=== PATIENT | male | born 2000 | race Caucasian/White ===

== ENCOUNTER 2023-01-26 12:05 | Emergency (ER) | payer OTHER, SELFPAY ==
[2023-01-26] VITALS (9 sets, daily range): BP systolic 198–220; BP diastolic 100–140; PULSE 76–104; RESP 16–20; TEMP 36.8; O2SAT 93–99; BMI 34.1
--- NOTE | 2023-01-26 12:30 | XR_ITS ---
[facility] [place] [id number] Patient Name: EMERSON MARSH MRN: [id number] date: 2000 Sex: M Assigned Patient Location: ER Current Patient Location: ER Accession/Order Number: [id number] Exam Date: 01/26/2023 12:42 Report Date: 01/26/2023 13:00 At the request of: MARGOT CASSIDY Procedure: XR chest 2V EXAMINATION: XR chest 2V 01/26/2023 9:59 AM PDT, [id number]. HISTORY: htn TECHNIQUE: 2 views of the chest were acquired. COMPARISONS: Chest x-ray 12/19/2019 FINDINGS: Lines/tubes/other: None. Heart and mediastinum: Within normal limits. Bones: No acute osseous abnormality. Lungs: Clear. Pleura: No pleural effusion or pneumothorax. Other: No pneumoperitoneum. XR/XR chest 2V IMPRESSION: No significant cardiopulmonary abnormality. Electronically authenticated by: FLAVIO RAMON Date: 01/26/2023 13:00
--- NOTE | 2023-01-26 12:30 | ECG_ITS ---
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
--- NOTE | 2023-01-26 12:32 | ED_ITS ---
HPI - General Adult General Chief complaint: Recheck/Abnormal Lab/Rx Stated complaint: HIGH BLOOD PRESSURE Time Seen by Provider: 01/26/23 12:30 Source: patient and family Mode of arrival: walk-in Limitations: no limitations History of Present Illness HPI narrative: Patient is a 22-year-old male Who is presenting to the Emergency Room with asymptomatic of a blood pressures. Patient was seeing his eye doctor today, patient had elevated blood pressures, patient was sent to the Emergency Room for evaluation for asymptomatic hypertension. Patient's father has elevated blood pressure. Patient has taken blood pressure medication in the past as well, over 3 years ago. Patient does have medical insurance, he currently has no PCP. Patient stopped taking his blood pressure medication in the past. He currently has no headache, no vision or hearing changes. No chest pain or shortness of breath. Abdominal pain, nausea, vomiting, or any other acute complaints. Patient's sister is at bedside. No bowel pain, nausea, vomiting, or any other acute complaints. No recent traveling, no trauma. No significant chest or anxiety. Patient has a factory job. . All systems are negative except as noted/marked. All systems reviewed and otherwise negative. . Nurses note and vital signs reviewed and patient is not hypoxic. General: The patient appears well and in no apparent distress. Patient is resting comfortably on cart. Patient is not toxic, lethargic, or listless. Obese. Skin: Warm, dry, no pallor noted. There is no rash noted. No petechiae, purpura. Head: Normocephalic, atraumatic Eye: Normal conjunctiva, no drainage, EOMI. PERRL Ears, Nose, Mouth, and Throat: oral mucosa is moist. Nares patent. Mouth without vesicles. Cardiovascular: Regular Rate and Rhythm, no murmur, gallop, rub Respiratory: Patient is in no distress, no accessory muscle use, lungs are clear to auscultation, no wheezing, rales or rhonchi Back: non-tender, no CVA tenderness bilaterally to percussion. No CT LS midline pain GI: soft, obese, no tenderness to palpation, no masses appreciated. No rebound, guarding, or rigidity noted. No flank pain bilateral, No distention Musculoskeletal: Patient has full range of motion of all of the extremities, no motor, sensory, or focal neurological deficits Neurological: A&O x3, normal speech Psychiatric: Cooperative Related Data Previous Rx's Medication Instructions Recorded amlodipine 5 mg tablet (Norvasc) 5 mg PO DAILY #20 tabs 01/26/23 Allergies Allergy/AdvReac Type Severity Reaction Status Date / Time No Known Drug Allergies Allergy Verified 01/26/23 12:16 PFSH PFSH Social History Smoking status: Never smoker Exam Constitutional Vital Signs, click to edit/add: Last Vital Signs Temp 98.2 F 01/26/23 12:08 Pulse 96 H 01/26/23 14:15 Resp 16 01/26/23 14:15 BP 210/120 H 01/26/23 14:15 Pulse Ox 96 01/26/23 14:15 O2 Del Method Room Air 01/26/23 14:15 Course Vital Signs Vital signs: Vital Signs Temperature 98.2 F 01/26/23 12:08 Pulse Rate 100 H 01/26/23 12:08 Respiratory Rate 20 01/26/23 12:08 Blood Pressure 210/140 H 01/26/23 12:08 Pulse Oximetry 99 01/26/23 12:08 Oxygen Delivery Method Room Air 01/26/23 12:08 Temperature 98.2 F 01/26/23 12:08 Pulse Rate 96 H 01/26/23 14:15 Respiratory Rate 16 01/26/23 14:15 Blood Pressure 210/120 H 01/26/23 14:15 Pulse Oximetry 96 01/26/23 14:15 Oxygen Delivery Method Room Air 01/26/23 14:15 Medical Decision Making MDM Narrative Medical decision making narrative: Patient was given a dose of hydralazine 20 mg IV. Patient has a symptomatically hypertension. Patient has no signs of end organ damage. He has no symptoms in the Emergency Room. Patient was given a Norvasc 5 mg tablet at discharge. Patient was started on Norvasc 5 mg, patient understands importance of treating his elevated blood pressure, his family generalized, and is extremely risk for years of having elevated blood pressure and being medically noncompliant. Patient understands return back to Emergency Room severe headache, chest pain, shortness of breath, or any other acute complaints. Patient understands this, no questions at discharge. Patient's been asymptomatic the entire time in the Emergency Room. Patient understands he needs establish new PCP, patient has list of doctors phone numbers and names of who is accepting patients at this time. Patient will be falling up with the [facility] with Gricelda Tucker or Dr Salas. Lab Data Lab results reviewed: Yes I reviewed the patient's lab results Labs: Lab Results 01/26/23 Range/Units 12:30 WBC 7.7 (4.0-11.0) 10^3/uL RBC 4.78 (4.70-6.10) 10^6/uL Hgb 13.5 L (14.0-18.0) g/dL Hct 40.5 L (42.0-54.0) % MCV 84.7 (80.0-94.0) fL MCH 28.2 (25.9-34.0) pg MCHC 33.3 (29.9-35.2) g/dL RDW 13.1 (11.0-15.0) % Plt Count 319 (150-450) 10^3/uL MPV 10.2 (9.5-13.5) fL Neut % (Auto) 58.7 (43.0-75.0) % Lymph % (Auto) 29.4 (20.5-60.0) % [place] % (Auto) 8.1 (1.7-12.0) % Eos % (Auto) 2.7 (0.9-7.0) % Baso % (Auto) 0.7 (0.2-2.0) % Neut # (Auto) 4.5 (1.4-6.5) 10^3/uL Lymph # (Auto) 2.3 (1.2-3.8) 10^3/uL [place] # (Auto) 0.6 (0.3-0.8) 10^3/uL Eos # (Auto) 0.2 (0.0-0.7) 10^3/uL Baso # (Auto) 0.1 (0.0-0.1) 10^3/uL Abs Immat Gran (auto) 0.03 (0.00-0.03) 10^3/uL Imm/Tot Granulo (auto) 0.4 (0.0-0.5) % Sodium 141 (136-145) mmol/L Potassium 3.5 (3.5-5.1) mmol/L Chloride 104 (98-107) mmol/L Carbon Dioxide 26.8 (21.0-32.0) mmol/L Anion Gap 13.7 BUN 18.0 (7.0-18.0) mg/dL Creatinine 0.93 (0.70-1.30) mg/dL Est GFR ( Amer) >60 (>=60) Est GFR (Non-Af Amer) >60 (>=60) BUN/Creatinine Ratio 19.4 Glucose 97 (74-106) mg/dL Calcium 8.9 (8.5-10.1) mg/dL Total Bilirubin 0.2 (0.2-1.0) mg/dL AST 23 (15-37) U/L ALT 60 (16-63) U/L Alkaline Phosphatase 61 (46-116) U/L Troponin I High Sens 8.7 (4.0-76.1) pg/mL Total Protein 8.3 H (6.4-8.2) g/dL Albumin 4.2 (3.4-5.0) g/dL Globulin 4.1 g/dL Albumin/Globulin Ratio 1.0 ECG Data Attestation: I personally reviewed and interpreted this ECG as follows: Interpretation: EKG interpretation. Normal sinus rhythm at 83 beats a minute. Normal axis deviation. No acute ST elevation, no acute ectopy. QTC of 407. Q waves noted in the inferior leads. Discharge Plan Discharge Chief Complaint: Recheck/Abnormal Lab/Rx Clinical Impression: Medical non-compliance, Hypertension Patient Disposition: Home, Self-Care Condition: Fair Prescriptions / Home Meds: New amlodipine [Norvasc] 5 mg tablet 5 mg PO DAILY Qty: 20 0RF Instructions: Hypertension (ED) Additional Instructions: Follow-up with a new physician that you are scheduling a new patient appointment with. You have been given a 2 week prescription of blood pressure medication To help. Start recording your blood pressures twice a day, start recording/creating your blood pressure log as discussed. If you have any other significant symptoms, Significant headache, chest pain, shortness of breath, or any other acute complaints, please return to the Emergency Room for reevaluation. Stand Alone Forms: Portal Instructions Referrals: Isael Andres MD [Physician] - 1 week Physician,Non-, [Primary Care Provider] - 1 week Shaikh Salas MD [Physician] - 1 week
[2023-01-26] MEDS: HYDRALAZINE HCL 20 MG/ML VIAL IVP (12:54)
[2023-01-26] MEDS: ONDANSETRON PF 4 MG/2 ML VIAL IV (12:54)
[2023-01-26 12:55] LABS: Basophils Absolute Auto 0.1 10^3/uL (0.0-0.1); Basophils Percent Auto 0.7 % (0.2-2.0); Eosinophils Absolute Auto 0.2 10^3/uL (0.0-0.7); Eosinophils Percent Auto 2.7 % (0.9-7.0); Hematocrit 40.5 % (42.0-54.0); Hemoglobin 13.5 g/dL (14.0-18.0); Immature Granulocytes Abs Auto 0.03 10^3/uL (0.00-0.03); Immature Granulocytes Pct Auto 0.4 % (0.0-0.5); Lymphocytes Absolute Auto 2.3 10^3/uL (1.2-3.8); Lymphocytes Percent Auto 29.4 % (20.5-60.0); Mean Corpuscular HGB Conc 33.3 g/dL (29.9-35.2); Mean Corpuscular Hemoglobin 28.2 pg (25.9-34.0); Mean Corpuscular Volume 84.7 fL (80.0-94.0); Mean Platelet Volume 10.2 fL (9.5-13.5); Monocytes Absolute Auto 0.6 10^3/uL (0.3-0.8); Monocytes Percent Auto 8.1 % (1.7-12.0); Neutrophils Absolute Auto 4.5 10^3/uL (1.4-6.5); Neutrophils Percent Auto 58.7 % (43.0-75.0); Platelet Count 319 10^3/uL (150-450); Red Blood Count 4.78 10^6/uL (4.70-6.10); Red Cell Distribution Width 13.1 % (11.0-15.0); White Blood Count 7.7 10^3/uL (4.0-11.0)
[2023-01-26 13:09] LABS: Alanine Aminotransferase 60 U/L (16-63); Albumin Level 4.2 g/dL (3.4-5.0); Alkaline Phosphatase 61 U/L (46-116); Anion Gap 13.7; Aspartate Amino Transferase 23 U/L (15-37); BUN Creatinine Ratio 19.4; Bilirubin Total 0.2 mg/dL (0.2-1.0); Calcium 8.9 mg/dL (8.5-10.1); Carbon Dioxide 26.8 mmol/L (21.0-32.0); Chloride 104 mmol/L (98-107); Estimated GFR (African America >60 (>=60); Estimated GFR (Non-African Ame >60 (>=60); Globulin 4.1 g/dL; Glucose 97 mg/dL (74-106); Potassium 3.5 mmol/L (3.5-5.1); Sodium 141 mmol/L (136-145); Total Protein 8.3 g/dL (6.4-8.2); Troponin I High Sensitivity 8.7 pg/mL (4.0-76.1)
[2023-01-26] MEDS: AMLODIPINE BESYLATE 5 MG TABLET PO (15:23)
== END 2023-01-26 15:35 | disposition home or self-care (01) ==
PROVIDERS: Emergency Provider Emergency Medicine
DX: I10 Essential (primary) hypertension (principal); Z91.148 Patient's other noncompliance with medication regimen for other reason
CPT/HCPCS: 36415; 71046; 80053; 84484; 85025; 93005; 96374; 96375; 99285

== ENCOUNTER 2024-04-17 07:36 | Outpatient (OUT) | payer OTHER, SELFPAY ==
[2024-04-17 08:03] LABS: Basophils Absolute Auto 0.1 10^3/uL (0.0-0.1); Eosinophils Absolute Auto 0.3 10^3/uL (0.0-0.7); Eosinophils Percent Auto 3.7 % (0.9-7.0); Hematocrit 42.7 % (42.0-54.0); Hemoglobin 14.5 g/dL (14.0-18.0); Immature Granulocytes Abs Auto 0.02 10^3/uL (0.00-0.03); Immature Granulocytes Pct Auto 0.3 % (0.0-0.5); Lymphocytes Absolute Auto 2.5 10^3/uL (1.2-3.8); Lymphocytes Percent Auto 31.2 % (20.5-60.0); Mean Corpuscular Hemoglobin 28.8 pg (25.9-34.0); Mean Corpuscular Volume 84.9 fL (80.0-94.0); Monocytes Absolute Auto 0.5 10^3/uL (0.3-0.8); Monocytes Percent Auto 6.1 % (1.7-12.0); Neutrophils Absolute Auto 4.6 10^3/uL (1.4-6.5); Neutrophils Percent Auto 57.7 % (43.0-75.0); Platelet Count 328 10^3/uL (150-450); Red Blood Count 5.03 10^6/uL (4.70-6.10); Red Cell Distribution Width 12.9 % (11.0-15.0); White Blood Count 7.9 10^3/uL (4.0-11.0)
[2024-04-17 08:41] LABS: Bilirubin Urine NEGATIVE (NEGATIVE); Blood Urine NEGATIVE (NEGATIVE); Clarity Urine CLEAR (CLEAR); Color Urine LT. YELLOW (YELLOW); Glucose Urine UA NEGATIVE (NEGATIVE); Ketones Urine NEGATIVE (NEGATIVE); Leukocyte Esterase Urine NEGATIVE (NEGATIVE); Nitrite Urine NEGATIVE (NEGATIVE); Protein Urine NEGATIVE (NEG/TRACE); Specific Gravity Urine >=1.030 (1.005-1.025); Urobilinogen Urine 0.2 EU/dL (0.2-1.0); pH Urine 5.5 (5.0-9.0)
[2024-04-17 08:44] LABS: Urine Microscopic Indicated NO
[2024-04-17 08:51] LABS: Alanine Aminotransferase 58 U/L (16-63); Albumin Globulin Ratio 0.9; Alkaline Phosphatase 71 U/L (46-116); Anion Gap 17.8; Aspartate Amino Transferase 27 U/L (15-37); BUN Creatinine Ratio 20.2; Bilirubin Total 0.3 mg/dL (0.2-1.0); Calcium 9.6 mg/dL (8.5-10.1); Carbon Dioxide 22.2 mmol/L (21.0-32.0); Chloride 103 mmol/L (98-107); Chol HDL Ratio 4.2; Cholesterol 213 mg/dL (<=200); Estimated GFR (African America >60 (>=60 mL/min/1.73m^2); Estimated GFR (Non-African Ame >60 (>=60 mL/min/1.73m^2); Globulin 4.6 g/dL; Glucose 79 mg/dL (74-106); HDL Cholesterol 51 mg/dL (40-60); Sodium 139 mmol/L (136-145); Thyroid Stimulating Hormone 1.417 uIU/mL (0.358-3.740); Total Protein 8.6 g/dL (6.4-8.2); Triglycerides 183 mg/dL (<=150); VLDL CHOLESTEROL 36.6 mg/dL
[2024-04-17 09:02] LABS: Creatinine Urine Random 240.51 mg/dL (20.00-300.00); Microalbum Creatinine Ratio Ur 5.8 mg/g (0.0-29.9); Microalbumin Urine Random 1.4 mg/dL (<=30.0)
== END 2024-04-17 07:37 | disposition home or self-care (01) ==
LOC: LAB 07:37
PROVIDERS: PCP Nurse Practitioner; Visit Provider Nurse Practitioner
DX: I47.10 Supraventricular tachycardia, unspecified (principal); I10 Essential (primary) hypertension; Z68.42 Body mass index [BMI] 45.0-49.9, adult
CPT/HCPCS: 36415; 80053; 80061; 81003; 82043; 82570; 84443; 85025

== ENCOUNTER 2024-05-29 06:54 | Outpatient (OUT) | payer OTHER, SELFPAY | END 2024-05-29 06:55 | disposition home or self-care (01) | LOC: SLEEP 06:54 | PROVIDERS: PCP Nurse Practitioner; Visit Provider Nurse Practitioner | DX: G47.33 Obstructive sleep apnea (adult) (pediatric) (principal) | CPT/HCPCS: 95810 ==

== ENCOUNTER 2024-06-04 15:48 | Outpatient (OUT) | payer OTHER, SELFPAY | END 2024-06-04 15:49 | disposition home or self-care (01) | LOC: SLEEP 15:48 | PROVIDERS: PCP Nurse Practitioner; Visit Provider Nurse Practitioner | DX: G47.33 Obstructive sleep apnea (adult) (pediatric) (principal) | CPT/HCPCS: 95811 ==

== ENCOUNTER 2025-01-30 06:56 | Outpatient (OUT) | payer OTHER, SELFPAY ==
--- OUTSIDE RECORDS SUMMARY | 2023-04-25 08:26 | XMS_ITS | Continuity of Care Document ---
Author Organization [facility] Address [address] [place] [address] Phone Care Team Providers Care Optics Engineer Name Role Phone Simi Ware MD Unavailable Unavailable Allergies, Adverse Reactions, Alerts Substance Reaction Status Criticality No Known Allergies Active No Inform ation Medications Medication Instructions Dosage Effective Dates (start - stop) Status Comments Norvasc 10 mg tablet take 1 tablet by or al route every day 10 MG - Active Procedures Procedure Date Ophthal DX Image Post Retina I And R Uni Or Bi OFFICE/OUTPATIENT VISIT, [facility] Fundus Photos No Charge Bilateral Ophthal DX Image Post Retina I And R Uni Or Bi OFFICE/OUTPATIENT VISIT, [facility] Advance Directives Directive Yes / No Effective Date File Name No Information Encounters Encounter Description Practice Location Reason(s) For Visit Diagnoses Date Provider Providers Copied on Encounter [facility] , [address] [place], [place], [facility], tel:[phone] KESHIA Bruno No Information 3 Jeanie Belcher. [address], [address], [place], [place], [id number] , [place]. tel:[phone] OFFICE/OUTPAT IENT VISIT, [facility], [facility] , [address] [place], [address], tel:[phone] MIN [place] Hypertensive retinopathy (chief complaint) Hypertensive retinopathy of both eyesPapilledem a, both eyesRetinal hemorrhage, bilateral 3 Jeanie Belcher. [address], [address], [place], [place], [id number] , [place]. tel:[phone] Other Provider: Gricelda Pettit, [address] [place], [address]. tel:[phone] erring Provider: Simi Hicks, [address] [facility], [place], [address] . tel:[phone] OFFICE/OUTPAT IENT VISIT, [facility] , [address], [address], [place] tel:[phone] MIN [place] blind spots (chief complaint) Hypertensive retinopathy of both eyesPapilledem a, both eyesRetinal hemorrhage, bilateral 3 Jeanie Hansaboubacar. [address], [place] [address], [place], [place], [id number] , [place]. tel:[phone] Referring Provider: Simi Hicks, [address] [facility], [place], [address] . tel:[phone] [facility] , [address] [place], [address], [place] tel:[phone] [facility] [place] No Information 3 Jeanie Hansaboubacar. [address] [facility], [place], [place], [id number] , [place]. tel:[phone] Family History Family Member Type Diagnosis Age At Onset Paternal grandfather Problem Diabetes mellitus Mother Problem Diabetes mellitus Father Problem Diabetes mellitus Payers Payer name Insurance type Covered alliance party ID Authoriza tion(s) [employer] Benefits [facility] [id number] CI [id number] Social History Type Description Quantity Date Captured Comments Sex Male Smoking Status No Information Chief Complaint And Reason For Visit No Information Reason For Referral Reason For Referral No Information History Of Present Illness Encounter Date Complaint History Of Prese nt Illness Hypertensive retinopathy The 22 year old male presents for 1 month evaluation of Hypertensive retinopathy in the right and left eyes. Patient is currently taking Norvasc for his HTN. Patient belies his vision has gotten worse. He states the spots are always in his vision. Patient believes that there are more spots then before and he does see them when he is at work, due to brightness of where he works. blind spots The 22 year old male presents for evaluation of blind spots in the right and left eyes. Patient states he started to notice blind spots in his central vision December 28, 2022. This originally started in the left eye and has progressed to the left eye several weeks ago. Patient denies flashes of light, but does report some pain OU. Patient reports blurry vision but does not wear glasses. 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
--- OUTSIDE RECORDS SUMMARY | 2025-01-30 07:02 | XMS_ITS | CCD ---
Author Organization [facility] Care Team Providers Care Software Applications Specialist Name Role Phone MARKER, GENESIS Admitting Unavailable MARKER, GENESIS Attending Unavailable REQUEST, NONE LISTED Primary Care Unavailable MARKER, GENESIS Consulting Unavailable Escobar, Vinaya Consulting Unavailable Jose FROST, Reji Martinez Unavailable Wilver CONCRETE CRAFTSMAN, Gricelda Unavailable Reji Garcia MD Unavailable Wilver CONCRETE CRAFTSMAN, Gricelda Unavailable Isael Andres MD Primary Care Provider Wilver CONCRETE CRAFTSMAN, Gricelda Unavailable WILVER GRICELDA Attending Unavailable WILVER, GRICELDA Attending Unavailable GRICELDA PETTIT Attending Unavailable GRICELDA PETTIT Attending Unavailable Reji Garcia DO Unavailable Allergies Allergy Classification Reported Allergen(s) Allergy Type Date of Onset Reaction(s) Facility (13 sources) Honey bee venom Propensity to adverse reactions 4 Swelling [facility] Medications Completed/Discontinued Medications Medication Drug Class(es) Dates Sig (Normalized) Sig (Original) amLODIPine 10 mg oral tablet (20 sources) Dihydropyridine Calcium Channel Abdoul Start: 02-02-2024 End: 02-18-2025 take 1 tablet by mouth once daily amLODIPine (Norvasc) 10 MG tablet Indications: Primary hypertension (CMS/HCC) Take 1 tablet (10 mg) by mouth Daily 90 tablet 1 07/03/2024 11/20/2024 Discontinued (Reorder) Start: 04-06-2023 End: 10-19-2023 take 1 tablet by mouth in the morning amLODIPine (Norvasc) 10 MG tablet Indications: Primary hypertension (CMS/HCC) Take 1 tablet (10 mg) by mouth in the morning. Take 1 tablet by mouth in the morning.. 90 tablet 0 07/21/2023 10/19/2023 Active losartan potassium 100 mg oral tablet (20 sources) Angiotensin 2 Receptor Abdoul Start: 02-02-2024 End: 02-18-2025 take 1 tablet by mouth once daily in the morning losartan (Cozaar) 100 MG tablet Indications: Primary hypertension (CMS/HCC) Take 1 tablet (100 mg) by mouth Daily Take 1 tablet by mouth in the morning. 90 tablet 1 07/03/2024 11/20/2024 Discontinued (Reorder) Start: 06-05-2023 End: 10-19-2023 take 1 tablet by mouth in the morning losartan (Cozaar) 100 MG tablet Indications: Primary hypertension (CMS/HCC) Take 1 tablet (100 mg) by mouth in the morning. 30 tablet 1 07/07/2023 07/21/2023 Discontinued Problems Active Problems Problem Classification Problem Date Documented Date Episodic/Chronic Cardiac dysrhythmias (14 sources) Supraventricular tachycardia; Translations: [SVT (supraventricular tachycardia)] Onset: 07-21-2023 07-21-2023 Chronic Cardiac dysrhythmias (4 sources) Tachycardia, unspecified; Translations: [Palpitations] Onset: 12-19-2019 Episodic Disorders of lipid metabolism (11 sources) Mixed hyperlipidemia; Translations: [Mixed hyperlipidemia] Onset: 05-03-2024 05-03-2024 Chronic Essential hypertension (20 sources) Essential (primary) hypertension; Translations: [Hypertensive disorder] Onset: 12-21-2019 07-06-2023 Chronic Fever of unknown origin (1 source) Fever, unspecified; Translations: [FEVER UNSPECIFIED] Onset: 12-21-2019 Episodic Mood disorders (14 sources) Major depressive disorder; Translations: [Major depressive disorder, single episode, unspecified] Onset: 07-21-2023 07-21-2023 Chronic Other nutritional; endocrine; and metabolic disorders (1 source) Morbid (severe) obesity due to excess calories; Translations: [MORBID SEVERE OBES D/T EXCESS CEM] Onset: 12-21-2019 Chronic Other nutritional; endocrine; and metabolic disorders (1 source) Body mass index (BMI) 31.0-31.9, adult; Translations: [BODY MASS INDEX BMI 31.0-31.9 ADULT] Onset: 12-21-2019 Chronic Other nutritional; endocrine; and metabolic disorders (20 sources) Body mass index 40+ - severely obese; Translations: [Morbid (severe) obesity due to excess calories] Onset: 07-21-2023 07-21-2023 Chronic Other nutritional; endocrine; and metabolic disorders (10 sources) Obesity caused by energy imbalance; Translations: [Morbid (severe) obesity due to excess calories] Onset: 07-03-2024 07-03-2024 Chronic Residual codes; unclassified (20 sources) Obstructive sleep apnea of adult; Translations: [Obstructive sleep apnea (adult) (pediatric)] Onset: 07-21-2023 07-21-2023 Chronic Retinal detachments; defects; vascular occlusion; and retinopathy (16 sources) Hypertensive retinopathy; Translations: [Hypertensive retinopathy, bilateral] Onset: 07-21-2023 07-21-2023 Chronic Past or Other Problems Problem Classification Problem Date Documented Da te Episodic/Chronic Other hematologic conditions (15 sources) Increased serum protein level; Translations: [Abnormality of plasma protein, unspecified] Onset: 04-18-2024 04-18-2024 Episodic Results Test Name Value Interpretation Reference Range Facility ALL CBC WITH AUTO DIFFon BASOPHILS ABSOLUTE AUTO 0.1 [facility] Basophils/100 WBC (Bld) 1 % 0.2 - 2.0 % [facility] Eosinophils/100 WBC (Bld) 3.7 % 0.9 - 7.0 % [facility] Erythrocyte distribution width (RBC) [Ratio] 12.9 % 11.0 - 15.0 % [facility] Hematocrit (Bld) [Volume fraction] 42.7 % 42.0 - 54.0 % [facility] Hemoglobin (Bld) [Mass/Vol] 14.5 g/dL 14.0 - 18.0 g/dL [facility] IMMATURE GRANULOCYTES ABS AUTO 0.02 [facility] Immature granulocytes/100 WBC (Bld) 0.3 % 0.0 - 0.5 % [facility] LYMPHOCYTES ABSOLUTE AUTO 2.5 [facility] Lymphocytes/100 WBC (Bld) 31.2 % 20.5 - 60.0 % [facility] MCH (RBC) [Entitic mass] 28.8 pg 25.9 - 34.0 pg [facility] MCHC (RBC) [Mass/Vol] 34 g/dL 29.9 - 35.2 g/dL [facility] MCV (RBC) [Entitic vol] 84.9 fL 80.0 - 94.0 fL [facility] MONOCYTES ABSOLUTE AUTO 0.5 [facility] Monocytes/100 WBC (Bld) 6.1 % 1.7 - 12.0 % [facility] NEUTROPHILS ABSOLUTE AUTO 4.6 [facility] Neutrophils/100 WBC (Bld) 57.7 % 43.0 - 75.0 % [facility] Platelet mean volume (Bld) [Entitic vol] 10 fL 9.5 - 13.5 fL [facility] EO # 0.3 [facility] PLT 328 [facility] RBC 5.03 [facility] WBC 7.9 [facility] CARDIAC EDER ADMITon 020 CK [Catalytic activity/Vol] 120 U/L Normal 55-170 [facility] [place] Comment on above: Performed By: #### C MARY ELLEN REYES #### [facility] [place] Laboratory [address] [place] [address] Aiden Nieves CK.MB [Mass/Vol] 0.76 ng/mL Normal <=2.37 [facility] Comment on above: Performed By: #### C MARY ELLEN REYES #### [facility] [place] Laboratory [address] [place] [address] Aidenaudrey Carvalhoen INR Coag (Bld) [Relative time] SEE BELOW Normal [facility] [place] Comment on above: Result Comment: <0.0 34 ng/ml NEGATIVE 0.034-0.119 INDETERMINATE 0.120 AMI CUT OFF Performed By: #### C MARY ELLEN REYES #### [facility] [place] Laboratory [address] [place] [address] Aiden Lizbeth PENNY 40.0 ng/mL Normal <=121.0 [facility] [place] Comment on above: Performed By: #### C MARY ELLEN REYES #### [facility] [place] Laboratory [address] [place] [address] Aiden Lizbeth TROP <0.012 Normal <=0.034 [facility] [place] Comment on above: Performed By: #### C MARY ELLEN REYES #### [facility] [place] Laboratory [address] [place] [address] Aiden Lizbeth CBC AUTO DIFFon 12-19-2019 Basophils (Bld) [#/Vol] 0.1 103/ul Normal 0.0-0.1 [facility] [place] Comment on above: Performed By: #### C BC #### [facility] Laboratory [address] [id number] Aiden Lizbeth Basophils/100 WBC (Bld) 0.8 % Normal 0.2-2.0 [facility] [place] Comment on above: Performed By: #### C BC #### [facility] Laboratory [address] [address] Aiden Lizbeth Eosinophils (Bld) [#/Vol] 0.2 103/ul Normal 0.0-0.7 [facility] Comment on above: Performed By: #### C BC #### [facility] [place] Laboratory [address] [place] [address] Aiden Lizbeth Eosinophils/100 WBC (Bld) 3.3 % Normal 0.9-7.0 [facility] Comment on above: Performed By: #### C BC #### [facility] Laboratory [address] [place] [address] Aiden Lizbeth Erythrocyte distribution width (RBC) [Ratio] 12.7 % Normal 11.0-15.0 [facility] Comment on above: Performed By: #### C BC #### [facility] Laboratory [address] [place], [place] [id number] Aiden Lizbeth Hematocrit (Bld) [Volume fraction] 41.6 % Critically low 42.0-54.0 [facility] [place] Comment on above: Performed By: #### C BC #### [facility] Laboratory [address] [place], [place] [id number] Aiden Lizbeth Hemoglobin (Bld) [Mass/Vol] 13.8 g/dL Critically low 14.0-18.0 [facility] [place] Comment on above: Performed By: #### C BC #### [facility] Laboratory [address] [place] [address] Aiden Lizbeth IG # 0.01 10e3/ul Normal 0.00-0.03 [facility] [place] Comment on above: Performed By: #### C BC #### [facility] [place] Laboratory [address] [id number] Aiden Lizbeth IG % 0.1 % Normal 0.0-0.5 [facility] [place] Comment on above: Performed By: #### C BC #### [facility] Laboratory [address] [id number] Aiden Lizbeth Lymphocytes (Bld) [#/Vol] 2.3 103/ul Normal 1.2-3.8 [facility] [place] Comment on above: Performed By: #### C BC #### [facility] [place] Laboratory [address] [place], [place] [id number] Aiden Lizbeth Lymphocytes/100 WBC (Bld) 32.4 % Normal 20.5-60.0 [facility] [place] Comment on above: Performed By: #### C BC #### [facility] [place] Laboratory [address] [place], [place] [id number] Aiden Lizbeth MANUAL DIFF REQ NO Normal [facility] Comment on above: Performed By: #### C BC #### [facility] [place] Laboratory [address] [place], [place] [id number] Aiden Lizbeth MCH (RBC) [Entitic mass] 28.7 pg Normal 25.9-34.0 [facility] [place] Comment on above: Performed By: #### C BC #### [facility] [place] Laboratory [address] [place], [place] [id number] Aiden Lizbeth MCHC (RBC) [Mass/Vol] 33.2 g/dL Normal 29.9-35.2 [facility] [place] Comment on above: Performed By: #### C BC #### [facility] Laboratory [address] [place], [place] [id number] Aiden Lizbeth MCV (RBC) [Entitic vol] 86.5 fL Normal 80.0-94.0 [facility] [place] Comment on above: Performed By: #### C BC #### [facility] Laboratory [address] [place], [place] [address] Aiden Lizbeth Monocytes (Bld) [#/Vol] 0.5 103/ul Normal 0.3-0.8 [facility] Comment on above: Performed By: #### C BC #### [facility] Laboratory [address] [place], [place] [address] Aiden Lizbeth Monocytes/100 WBC (Bld) 6.6 % Normal 1.7-12.0 [facility] Comment on above: Performed By: #### C BC #### [facility] Laboratory [address] [place], [place] [address] Aiden Lizbeth Neutrophils (Bld) [#/Vol] 4.1 103/ul Normal 1.4-6.5 [facility] Comment on above: Performed By: #### C BC #### [facility] Laboratory [address] [place], [place] [address] Aiden Lizbeth Neutrophils/100 WBC (Bld) 56.8 % Normal 43.0-75.0 [facility] Comment on above: Performed By: #### C BC #### [facility] Laboratory [address] [place], [place] [address] Aiden Lizbeth Platelet mean volume (Bld) [Entitic vol] 10.5 fL Normal 9.5-13.5 [facility] Comment on above: Performed By: #### C BC #### [facility] Laboratory [address] [place], [place] [address] Aiden Lizbeth Platelets (Bld) [#/Vol] 308 103/ul Normal 150-450 [facility] [place] Comment on above: Performed By: #### C BC #### [facility] Laboratory [address] [place], [place] [address] Aiden Lizbeth RBC (Bld) [#/Vol] 4.81 106/ul Normal 4.70-6.10 [facility] Comment on above: Performed By: #### C BC #### [facility] Laboratory [address] [place], [place] [address] Aiden Lizbeth WBC (Bld) [#/Vol] 7.2 103/ul Normal 4.0-11.0 [facility] Comment on above: Performed By: #### C BC #### [facility] Laboratory [address] [place], [place] [address] Aiden Lizbeth D-DIMERon 12-19-2019 D-DIMER COMMENTS SEE BELOW Normal [facility] Comment on above: Result Comment: Incr eases in D-Dimer concentration observed with thromboembolic events can be variable due to localization, size, and age of the thrombus. Therefore, a thromboembolic event cannot be diagnosed with certainty on the basis of the reference range. D-Dimers may also be elevated for a variety of disorders including: advanced age, , coronary disease, cancer, liver disease, infection, inflammation, hematoma, DIC, trauma, post-surgery, diabetes, thrombolytic or anticoagulant therapy, stress, and generalizd hospitalization. Performed By: #### D DIM #### [facility] Laboratory [address] [place], [place] [address] Aiden Nieves Fibrin D-dimer FEU IA (Bld) [Mass/Vol] 0.19 ug/mL Normal 0.19-0.50 [facility] Comment on above: Performed By: #### D DIM #### [facility] Laboratory [address] [place] [address] Aiden Nieves PROF 14(COMP METB)on 020 Albumin [Mass/Vol] 4.0 g/dL Normal 3.5-5.0 [facility] Comment on above: Performed By: #### C MARY ELLEN REYES #### [facility] Laboratory [address] [place], [place] [address] Aiden Nieves Albumin/Globulin [Mass ratio] 1.0 {ratio} Normal [facility] Comment on above: Performed By: #### C MARY ELLEN REYES #### [facility] Laboratory [address] [place], [place] [address] Aiden Nieves ALP [Catalytic activity/Vol] 56 U/L Normal 38-126 [facility] Comment on above: Performed By: #### C VÍCTOR REYESDM #### [facility] Laboratory [address] [place], [place] [address] Aiden Nieves ALT [Catalytic activity/Vol] 61 U/L Normal 21-72 [facility] Comment on above: Performed By: #### C VÍCTOR REYESDM #### [facility] Laboratory [address] [place], [place] [address] Aiden Nieves Anion gap [Moles/Vol] 16.3 mmol/L Normal [facility] Comment on above: Performed By: #### C MARY ELLEN REYES #### [facility] Laboratory [address] [id number] Aiden Lizbeth AST [Catalytic activity/Vol] 36 U/L Normal 17-59 [facility] Comment on above: Performed By: #### C AMY, VÍCTORDM #### [facility] Laboratory [address] [id number] Aiden Lizbeth Bilirubin Ql (U) 0.4 mg/dL Normal 0.2-1.3 [facility] Comment on above: Performed By: #### C AMY, VÍCTORDM #### [facility] Laboratory [address] [id number] Aiden Lizbeth Calcium [Mass/Vol] 9.0 mg/dL Normal 8.4-10.2 [facility] Comment on above: Performed By: #### C AMY, CMADM #### [facility] [address] [id number] Aiden Lizbeth Chloride [Moles/Vol] 102 mmol/L Normal 98-107 [facility] Comment on above: Performed By: #### C MARY ELLEN REYES #### [facility] Laboratory [address] [id number] Aiden Lizbeth CO2 [Moles/Vol] 25.3 mmol/L Normal 22.0-30.0 [facility] Comment on above: Performed By: #### C AMY, CMADM #### [facility] Laboratory [address] [id number] Aiden Lizbeth Creatinine [Mass/Vol] 1.01 mg/dL Normal 0.66-1.25 [facility] Comment on above: Performed By: #### C AMY, CMADM #### [facility] Laboratory [address] [phone] Aiden Lizbeth EGFR-AF BELIZEAN >60 Normal >=60 [facility] Comment on above: Performed By: #### C AMY, VÍCTORDM #### [facility] Laboratory [address] [phone] Aiden Lizbeth EGFR-NON AF BELIZEAN >60 Normal >=60 [facility] Comment on above: Performed By: #### C MARY ELLEN REYES #### [facility] Laboratory [address] [phone] Aiden Lizbeth Globulin (S) [Mass/Vol] 4.0 g/dL Normal [facility] Comment on above: Performed By: #### C AMY, MARY ELLEN #### [facility] Laboratory [address] [id number] Aiden Lizbeth Glucose [Mass/Vol] 85 mg/dL Normal 74-106 [facility] Comment on above: Performed By: #### C AMY, MARY ELLEN #### [facility] Laboratory [address] [id number] Aiden Lizbeth Potassium [Moles/Vol] 3.6 mmol/L Normal 3.4-5.0 [facility] Comment on above: Performed By: #### C AMY, MARY ELLEN #### [facility] Laboratory [address] [phone] Aiden Lizbeth Protein [Mass/Vol] 8.0 g/dL Normal 6.1-8.2 [facility] Comment on above: Performed By: #### C AMY, MARY ELLEN #### [facility] Laboratory [address] [id number] Aiden Lizbeth Sodium [Moles/Vol] 140 mmol/L Normal 137-145 [facility] Comment on above: Performed By: #### C AMY, MARY ELLEN #### [facility] Laboratory [address] [phone] Aiedn Lizbeth Urea nitrogen [Mass/Vol] 18.0 mg/dL Normal 9.0-20.0 [facility] Comment on above: Performed By: #### C AMY, MARY ELLEN #### [facility] Laboratory [address] [place], [place] [address] Aiden Lizbeth Urea nitrogen/Creatinin e [Mass ratio] 17.8 mg/mg Normal [facility] Comment on above: Performed By: #### C AMY, MARY ELLEN #### [facility] Laboratory [address] [id number] Aiden Lizbeth XR CHEST 1 Von 12-19-2019 XR CHEST 1 V EXAM: XR CHEST 1 V HISTORY: CHEST PAIN, UNSPECIFIED COMPARISON: None. FINDINGS: Single AP upright view is submitted.. The cardiomediastinal silhouette, lungs, pulmonary vasculature, and pleural spaces are normal. No acute osseous lesion is present. IMPRESSION: No acute cardiopulmonary abnormality. Electronically authenticated by: PILO AGUILLON Date: 2019-12-19 05:01 Normal [facility] Vital Signs Date Time Vital Sign Value Performing Clinician Fer baer 11-20-2024 15:56-0400 Body mass index (BMI) [Ratio] 45.57 kg/m2 Gricelda Pettit CONCRETE CRAFTSMAN Work Phone: [facility] 11-20-2024 15:56-0400 Body temperature 98.29 [degF] Gricelda Pettit CONCRETE CRAFTSMAN Work Phone: [facility] 11-20-2024 15:56-0400 Body weight 156.67 kg Gricelda Pettit CONCRETE CRAFTSMAN Work Phone: [facility] 11-20-2024 15:56-0400 Diastolic blood pressure 88 mm[Hg] Gricelda Pettit CONCRETE CRAFTSMAN Work Phone: [facility] 11-20-2024 15:56-0400 Heart rate 76 /min Gricelda Pettit CONCRETE CRAFTSMAN Work Phone: [facility] 11-20-2024 15:56-0400 Respiratory rate 20 /min Gricelda Pettit CONCRETE CRAFTSMAN Work Phone: [facility] 11-20-2024 15:56-0400 SaO2% (BldA) [Mass fraction] 97 % Gricelda Pettit CONCRETE CRAFTSMAN Work Phone: [facility] 11-20-2024 15:56-0400 Systolic blood pressure 122 mm[Hg] Gricelda Pettit CONCRETE CRAFTSMAN Work Phone: [facility] 07-03-2024 14:51-0500 Body height 185.4 cm Gricelda Pettit CONCRETE CRAFTSMAN Work Phone: [facility] 07-03-2024 14:51-0500 Body mass index (BMI) [Ratio] 48.55 kg/m2 Gricelda Pettit CONCRETE CRAFTSMAN Work Phone: [facility] 07-03-2024 14:51-0500 Body temperature 98.49 [degF] Gricelda Sarahhholz CONCRETE CRAFTSMAN Work Phone: [facility] 07-03-2024 14:51-0500 Body weight 166.92 kg Gricelda Aichholz CONCRETE CRAFTSMAN Work Phone: [facility] 07-03-2024 14:51-0500 Diastolic blood pressure 98 mm[Hg] Gricelda Aichholz CONCRETE CRAFTSMAN Work Phone: [facility] 07-03-2024 14:51-0500 Heart rate 98 /min Gricelda Aichholz CONCRETE CRAFTSMAN Work Phone: [facility] 07-03-2024 14:51-0500 Respiratory rate 20 /min Gricelda Sarahhholz CONCRETE CRAFTSMAN Work Phone: [facility] 07-03-2024 14:51-0500 SaO2% (BldA) [Mass fraction] 97 % Gricelda Sarahhholz CONCRETE CRAFTSMAN Work Phone: [facility] 07-03-2024 14:51-0500 Systolic blood pressure 142 mm[Hg] Gricelda Aichholz CONCRETE CRAFTSMAN Work Phone: [facility] 05-03-2024 15:15-0500 Body height 185.4 cm Gricelda Aichholz CONCRETE CRAFTSMAN Work Phone: [facility] 05-03-2024 15:15-0500 Body mass index (BMI) [Ratio] 47.13 kg/m2 Gricelda Sarahhholz CONCRETE CRAFTSMAN Work Phone: [facility] 05-03-2024 15:15-0500 Body temperature 98.49 [degF] Gricelda Aichholz CONCRETE CRAFTSMAN Work Phone: [facility] 05-03-2024 15:15-0500 Body weight 162.03 kg Gricelda Aichholz [employer] Work Phone: [facility] 05-03-2024 15:15-0500 Diastolic blood pressure 86 mm[Hg] Gricelda Aichholz [employer] Work Phone: [facility] 05-03-2024 15:15-0500 Heart rate 78 /min Gricelda Aichholz [employer] Work Phone: [facility] 05-03-2024 15:15-0500 Respiratory rate 20 /min Gricelda Aichholz [employer] Work Phone: [facility] 05-03-2024 15:15-0500 SaO2% (BldA) [Mass fraction] 97 % Gricelda Sarahhholz [employer] Work Phone: [facility] 05-03-2024 15:15-0500 Systolic blood pressure 128 mm[Hg] Gricelda Aichholz [employer] Work Phone: [facility] 07-21-2023 15:00-0500 Body height 185.4 cm Gricelda Aichholz [employer] Work Phone: [facility] 07-21-2023 15:00-0500 Body mass index (BMI) [Ratio] 45.7 kg/m2 Gricelda Sarahhholz [employer] Work Phone: [facility] 07-21-2023 15:00-0500 Body temperature 97.81 [degF] Gricelda Sarahhholz [employer] Work Phone: [facility] 07-21-2023 15:00-0500 Body weight 157.13 kg Gricelda Sarahhholz [employer] Work Phone: [facility] 07-21-2023 15:00-0500 Diastolic blood pressure 98 mm[Hg] Gricelda Aichholz [employer] Work Phone: [facility] 07-21-2023 15:00-0500 Heart rate 86 /min Gricelda Aichholz [employer] Work Phone: [facility] 07-21-2023 15:00-0500 Respiratory rate 18 /min Gricelda Aichholz [employer] Work Phone: [facility] 07-21-2023 15:00-0500 SaO2% (BldA) [Mass fraction] 98 % Gricelda Aichholz [employer] Work Phone: [facility] 07-21-2023 15:00-0500 Systolic blood pressure 132 mm[Hg] Gricelda Wilver [employer] Work Phone: [facility] Encounters Encounter Date Encounter Type Care Provider Facility Start: 11-20-2024 End: 11-20-2024 Office outpatient visit 15 minutes Gricelda Wilver [employer] Work Phone: [facility] Comment on above: Primary hypertension (CMS/HCC) (Primary Dx); Obstructive sleep apnea, adult; Morbid (severe) obesity due to excess calories (CMS/HCC) Start: 11-20-2024 End: 11-20-2024 ambulatory GRICELDA AICHHOLZ Not Available Start: 11-20-2024 End: 11-20-2024 Bamboo flowsheet Gricelda Aicveroholz [employer] Work Phone: [facility] Start: 11-20-2024 End: 11-20-2024 Bamboo flowsheet Gricelda Aichholz [employer] Work Phone: [facility] Start: 07-03-2024 End: 07-03-2024 ambulatory GRICELDA AICHHOLZ Not Available Start: 07-03-2024 End: 07-03-2024 Office outpatient visit 25 minutes Gricelda Wilver [employer] Work Phone: [facility] Comment on above: Primary hypertension (CMS/HCC) (Primary Dx); Morbid (severe) obesity due to excess calories (CMS/HCC); Body mass index (BMI) 45.0-49.9, adult (CMS/HCC); Obstructive sleep apnea, adult; Elevated serum protein level Start: 07-03-2024 End: 07-03-2024 Bamboo flowsheet Gricelda Aichholz [employer] Work Phone: [facility] Start: 07-03-2024 End: 07-03-2024 Bamboo flowsheet Gricelda Aichholz [employer] Work Phone: [facility] Start: 05-03-2024 End: 05-03-2024 ambulatory GRICELDA AICHHOLZ Not Available Start: 05-03-2024 End: 05-03-2024 Office outpatient visit 25 minutes Gricelda Wilver [employer] Work Phone: [facility] Comment on above: Primary hypertension (CMS/HCC) (Primary Dx); Obstructive sleep apnea, adult; BMI 45.0-49.9, adult (CMS/HCC); Elevated serum protein level; Hypertensive retinopathy, bilateral; Mixed hyperlipidemia (CMS/HCC) Start: 05-03-2024 End: 05-03-2024 Bamboo flowsheet Gricelda Keatonz [employer] Work Phone: [facility] Start: 05-03-2024 End: 05-03-2024 Bamboo flowsheet Gricelda Sarahhholz [employer] Work Phone: [facility] Start: 04-18-2024 End: 04-18-2024 Orders Only Gricelda Wilver [employer] Work Phone: [facility] Comment on above: Elevated serum prote in level (Primary Dx) Start: 04-17-2024 End: 04-17-2024 Clinisync Result Encounter Gricelda Aichholz [employer] Work Phone: [facility] Unsolicited Start: 04-17-2024 End: 04-17-2024 Clinisync Result Encounter Gricelda Aichholz [employer] Work Phone: [facility] Unsolicited Start: 02-25-2024 End: 02-27-2024 Refill Gricelda Tayholz [employer] Work Phone: [facility] Comment on above: Primary hypertension (CMS/HCC) Start: 02-02-2024 End: 02-02-2024 ambulatory GRICELDA AICHHOLZ Not Available Start: 07-21-2023 End: 07-21-2023 Office outpatient visit 15 minutes Gricelda Keatonz [employer] Work Phone: [facility] Comment on above: Primary hypertension (CMS/HCC) (Primary Dx); BMI 45.0-49.9, adult (CMS/HCC) Start: 07-21-2023 Bamboo flowsheet Gricelda Pettit [employer] Work Phone: [facility] Start: 07-21-2023 Bamboo flowsheet Gricelda Pettit [employer] Work Phone: [facility] Start: 12-19-2019 End: 12-19-2019 Patient encounter procedure GENESIS MARKER Facility:[facility]1 Procedures Date Procedure Procedure Detail Performing Clinician Start: 04-17-2024 ALL CBC WITH AUTO DIFF Gricelda Pettit [employer] Work Phone: Plan of Treatment Date Care Activity Detail Author Start: 04-23-2025 End: 04-23-2025 Patient encounter procedure 04/23/2025 3:00 PM EST Office Visit [facility] [address] [place] [phone] Gricelda Pettit, [employer] [address] [place] [phone] [facility] Start: 11-20-2024 End: 11-20-2024 Patient encounter procedure 11/20/2024 3:40 PM EDT Office Visit [facility] [address] [place] [phone] Gricelda Pettit, [employer] [address] [place] [phone] Obstructive sleep apnea, adult (Primary Dx); Primary hypertension (CMS/HCC); Morbid (severe) obesity due to excess calories (CMS/HCC) [facility] Comment on above: Obstructive sleep ap maco, adult (Primary Dx); Primary hypertension (CMS/HCC); Morbid (severe) obesity due to excess calories (CMS/HCC) Start: 07-03-2024 End: 07-03-2024 Patient encounter procedure 07/03/2024 2:40 PM EST Office Visit [facility] [address] [place] [phone] Gricelda Pettit, [employer]CR[employer]E [employer] [address] [place] [phone] [facility] Start: 05-19-2024 End: 04-18-2025 Hepatic function 2000 panel - Serum or Plasma Hepatic function panel Lab Routine Elevated serum protein level Expected: 05/19/2024 (Approximate), Expires: 04/18/2025 [facility] Work Phone: Comment on above: Expected: 05/19/2024 (Approximate), Expires: 04/18/2025 Start: 05-03-2024 End: 05-03-2024 Patient encounter procedure 05/03/2024 3:00 PM EST Office Visit [facility] [address] [place] [phone] Gricelda Pettit, [employer]CR[employer] [address] [place] [phone] [facility] Start: 10-19-2023 End: 10-19-2023 Patient encounter procedure 10/19/2023 2:20 PM EDT Office Visit [facility] [address] [place] [address] Gricelda Pettit, [employer]CR[employer] [address] [place] [phone] [facility] Start: 07-21-2023 End: 07-21-2023 Patient encounter procedure 07/21/2023 3:00 PM EST Office Visit [facility] [address] [place] [address] Gricelda Pettit, [employer]CR[employer]E [employer] [address] [place] [phone] Arrived [facility] Comment on above: Arrived Payers Date Payer Category Payer Private Health Insurance [place] [address] [id number] 2022 Unknown [id number] 2022 Unknown [id number] 1998 Unknown [id number] 1998 Unknown [id number] 1998 Unknown [id number] 1998 Unknown [id number] 1998 Unknown [id number] 1959 Unknown [id number] Social History Date Type Detail Facility Start: 07-06-[address] [facility] Never smoked tobacco [facility] Start: 07-06-2023 End: 11-02-2023 History of Social function [facility] Start: 07-06-2023 End: 11-02-2023 Tobacco use panel [facility] Start: 2000 Sex Assigned At Not on file [facility] Start: 07-21-2023 End: 11-20-2024 Alcohol intake Lifetime non-drinker (finding) [facility] Start: 07-21-2023 Alcohol Comment caffine:soda 20oz da erik [facility] Clinical Notes 07-21-2023 to 11-20-2024 Gricelda Pettit, [employer] - 11/20/2024 3:40 PM Yohana Pettit, [employer]CR[employer] - 11/20/2024 7:05 AM EDLisa Wilver, [employer] - 11/20/2024 7:04 AM EDLisa Sarahverokika, [employer]CR[employer] - 11/20/2024 7:04 AM EDTPatient Instructions Note Date & Type Note Facility 11-20-2024 History of Presen t illness Narrative Images from the original note were not included. Estiven Woods is a 24 y.o. male presents with chief complaint of Hypertension HPI: Hypertension This is a chronic problem. The current episode started more than 1 year ago. The problem is unchanged. The problem is controlled. Pertinent negatives include no blurred vision, neck pain, peripheral edema or shortness of breath. There are no associated agents to hypertension. Risk factors for coronary artery disease include obesity and male gender. Past treatments include calcium channel blockers and angiotensin blockers. The current treatment provides significant improvement. There are no compliance problems. Hypertensive end-organ damage includes retinopathy. There is no history of CAD/IN, heart failure or PVD. SUBJECTIVE: MEDICATIONS: Current Outpatient Medications Medication Instructions amLODIPine (NORVASC) 10 mg, Oral, Daily losartan (COZAAR) 100 mg, Oral, Daily, Take 1 tablet by mouth in the morning. ALLERGIES: Allergies Allergen Reactions Bee Venom Swelling REVIEW OF SYMPTOMS: Review of Systems Constitutional: Negative for activity change, appetite change and unexpected weight change. HENT: Negative for ear pain, nosebleeds, sneezing, trouble swallowing and voice change. Eyes: Negative for blurred vision, pain, discharge and visual disturbance. Respiratory: Negative for apnea, chest tightness, shortness of breath and wheezing. Cardiovascular: Negative for leg swelling. Gastrointestinal: Negative for abdominal distention, blood in stool, constipation and diarrhea. Genitourinary: Negative for decreased urine volume, difficulty urinating, dysuria and hematuria. Musculoskeletal: Negative for neck pain. Skin: Negative for color change. Neurological: Negative for dizziness, tremors and seizures. Psychiatric/Behavioral: Negative for agitation, decreased concentration, hallucinations, self-injury and suicidal ideas. The patient is not nervous/anxious. Hematological: Negative for adenopathy. Does not bruise/bleed easily. Endocrine: Negative for cold intolerance, heat intolerance, polydipsia and polyuria. Allergic/Immunologic: Negative for environmental allergies and food allergies. PAST MEDICAL HISTORY Past Medical History: Diagnosis Date HTN (hypertension) ([facility]/HCC) 07/06/2023 Hypertensive retinopathy, bilateral last eye exam 02/23/23 Major depression, chronic ([facility]) Morbid obesity with body mass index of 40.0-49.9 ([facility]) Obstructive sleep apnea, adult SVT (supraventricular tachycardia) ([facility]) Past Surgical History: Procedure Laterality Date TONSILLECTOMY as a child family history includes Diabetes in his mother, paternal grandfather, and paternal grandmother; Hypertension in his father and mother; Leukemia in his father and another family member. OBJECTIVE: Visit Vitals Smoking Status Never Physical Exam Vitals and nursing note reviewed. Constitutional: Appearance: Normal appearance. HENT: Head: Normocephalic. Right Ear: External ear normal. Left Ear: External ear normal. Nose: Nose normal. Mouth/Throat: Mouth: Mucous membranes are moist. Pharynx: Oropharynx is clear. Eyes: Extraocular Movements: Extraocular movements intact. Conjunctiva/sclera: Conjunctivae normal. Neck: Vascular: No carotid bruit. Cardiovascular: Rate and Rhythm: Normal rate and regular rhythm. Pulses: Normal pulses. Heart sounds: Normal heart sounds. Pulmonary: Effort: Pulmonary effort is normal. Breath sounds: Normal breath sounds. No wheezing or rhonchi. Abdominal: General: Bowel sounds are normal. Palpations: Abdomen is soft. There is no mass. Tenderness: There is no abdominal tenderness. Musculoskeletal: Cervical back: Neck supple. Right lower leg: No edema. Left lower leg: No edema. Skin: General: Skin is warm and dry. Capillary Refill: Capillary refill takes 2 to 3 seconds. Neurological: General: No focal deficit present. Mental Status: He is alert. Psychiatric: Mood and Affect: Mood normal. Behavior: Behavior normal. Thought Content: Thought content normal. Judgment: Judgment normal. ASSESSMENT AND PLAN: No follow-ups on file. Problem List Items Addressed This Visit HTN (hypertension) ([facility]) - Primary Please check blood pressure daily and record DASH diet Limit caffeine Take medication as directed Contact office if chest pain, pressure, dizziness, shortness of breath, swelling legs Recommend slow position changes Current: amlodipine and losartan Took today's meds just prior to coming in for an appt Will have pt stop in office next week for bp check, no adjustments at this time Relevant Medications amLODIPine (Norvasc) 10 MG tablet losartan (Cozaar) 100 MG tablet Obstructive sleep apnea, adult Had both sleep studies, has machine, wearing since of Still getting used to it. You have a diagnosis of obstructive sleep apnea. It is recommended that you wear your PAP device any time while in bed sleeping. Not using the PAP device can increase your risk of elevated/uncontrolled high blood pressure, atrial fibrillation, heart attack, stroke, or sudden . Compliant: sporadic, work schedule makes it hard Hours: varies Overall feels better, but still getting adjusted to sleep etc Morbid (severe) obesity due to excess calories (CMS/HCC) Discussed with patient their BMI (actual, verses recommended). We have also discussed lifestyle modifications: attempts to perform physical activity as chronic conditions allow, also to monitor dietary intake: increasing protein/fruits/veggies and lowering carb intake (unless contraindicated). Limit sodas, juices, and sugary drinks. Has lost approx 23 pounds since 07/14 Cut out milk, more water, less pop, less fast food More activity Associated Problem(s): Morbid (severe) obesity due to excess calories (CMS/HCC) Discussed with patient their BMI (actual, verses recommended). We have also discussed lifestyle modifications: attempts to perform physical activity as chronic conditions allow, also to monitor dietary intake: increasing protein/fruits/veggies and lowering carb intake (unless contraindicated). Limit sodas, juices, and sugary drinks. Has lost approx 23 pounds since 07/14 Cut out milk, more water, less pop, less fast food More activity Associated Problem(s): HTN (hypertension) (CMS/HCC) Please check blood pressure daily and record DASH diet Limit caffeine Take medication as directed Contact office if chest pain, pressure, dizziness, shortness of breath, swelling legs Recommend slow position changes Current: amlodipine and losartan Took today's meds just prior to coming in for an appt Will have pt stop in office next week for bp check, no adjustments at this time Associated Problem(s): Obstructive sleep apnea, adult Had both sleep studies, has machine, wearing since Still getting used to it. You have a diagnosis of obstructive sleep apnea. It is recommended that you wear your PAP device any time while in bed sleeping. Not using the PAP device can increase your risk of elevated/uncontrolled high blood pressure, atrial fibrillation, heart attack, stroke, or sudden . Compliant: sporadic, work schedule makes it hard Hours: varies Overall feels better, but still getting adjusted to sleep etc documented in this encounter [facility] 11-20-2024 Instructions Gricelda Pettit NP - 11/20/2024 3:40 PM EDT No med dose changes, continue all your hard work!!! documented in this encounter [facility] 07-03-2024 History of Presen t illness Narrative Associated Problem(s): Morbid (severe) obesity due to excess calories (CMS/HCC) Discussed with patient their BMI (actual, verses recommended). We have also discussed lifestyle modifications: attempts to perform physical activity as chronic conditions allow, also to monitor dietary intake: increasing protein/fruits/veggies and lowering carb intake (unless contraindicated). Limit sodas, juices, and sugary drinks. 20 pound weight gain since 11/10. Parents now living with him, more snacks and different eating schedule Recommend try to stick 2000 calories, Associated Problem(s): Elevated serum protein level Will provide order for him to get done Non fasting Associated Problem(s): Obstructive sleep apnea, adult Had both sleep studies, has machine, wearing since Still getting used to it. You have a diagnosis of obstructive sleep apnea. It is recommended that you wear your PAP device any time while in bed sleeping. Not using the PAP device can increase your risk of elevated/uncontrolled high blood pressure, atrial fibrillation, heart attack, stroke, or sudden . Compliant: yes Hours: at least 4 hours Overall feels better, but still getting adjusted to sleep etc Pt states he took his medication right before coming in Images from the original note were not included. Estiven Woods is a 24 y.o. male presents with chief complaint of Hypertension HPI: Hypertension This is a chronic problem. The current episode started more than 1 year ago. The problem is unchanged. Pertinent negatives include no blurred vision, chest pain, peripheral edema or shortness of breath. There are no associated agents to hypertension. Risk factors for coronary artery disease include obesity, male gender and sedentary lifestyle. Past treatments include calcium channel blockers and angiotensin blockers. The current treatment provides moderate improvement. There are no compliance problems. SUBJECTIVE: MEDICATIONS: Current Outpatient Medications Medication Instructions amLODIPine (NORVASC) 10 mg, Oral, Daily losartan (COZAAR) 100 mg, Oral, Daily, Take 1 tablet by mouth in the morning. ALLERGIES: Allergies Allergen Reactions Bee Venom Swelling REVIEW OF SYMPTOMS: Review of Systems Constitutional: Negative for activity change, appetite change and unexpected weight change. HENT: Negative for ear pain, nosebleeds, sneezing, trouble swallowing and voice change. Eyes: Negative for blurred vision, pain, discharge and visual disturbance. Respiratory: Negative for apnea, chest tightness, shortness of breath and wheezing. Cardiovascular: Negative for chest pain and leg swelling (occ). Gastrointestinal: Negative for abdominal distention, blood in stool, constipation and diarrhea. Genitourinary: Negative for decreased urine volume, difficulty urinating, dysuria and hematuria. Skin: Negative for color change. Neurological: Negative for dizziness, tremors and seizures. Psychiatric/Behavioral: Negative for agitation, decreased concentration, hallucinations, self-injury and suicidal ideas. The patient is not nervous/anxious. Hematological: Negative for adenopathy. Does not bruise/bleed easily. Endocrine: Negative for cold intolerance, heat intolerance, polydipsia and polyuria. Allergic/Immunologic: Negative for environmental allergies and food allergies. PAST MEDICAL HISTORY Past Medical History: Diagnosis Date HTN (hypertension) ([facility]) 07/06/2023 Hypertensive retinopathy, bilateral last eye exam 02/23/23 Major depression, chronic ([facility]) Morbid obesity with body mass index of 40.0-49.9 ([facility]) Obstructive sleep apnea, adult SVT (supraventricular tachycardia) ([facility]) Past Surgical History: Procedure Laterality Date TONSILLECTOMY as a child family history includes Diabetes in his mother, paternal grandfather, and paternal grandmother; Hypertension in his father and mother; Leukemia in his father and another family member. OBJECTIVE: Visit Vitals BP (!) 142/98 (BP Location: Left arm, Patient Position: Sitting, BP Cuff Size: Large adult) Pulse 98 Temp 98.5 F (Temporal) Resp 20 Ht 6' 1 Wt 368 lb SpO2 97% BMI 48.55 kg/m Smoking Status Never BSA 2.93 m Physical Exam Vitals and nursing note reviewed. Constitutional: Appearance: Normal appearance. HENT: Head: Normocephalic. Right Ear: External ear normal. Left Ear: External ear normal. Nose: Nose normal. Mouth/Throat: Mouth: Mucous membranes are moist. Pharynx: Oropharynx is clear. Eyes: Extraocular Movements: Extraocular movements intact. Conjunctiva/sclera: Conjunctivae normal. Neck: Vascular: No carotid bruit. Cardiovascular: Rate and Rhythm: Normal rate and regular rhythm. Pulses: Normal pulses. Heart sounds: Normal heart sounds. Pulmonary: Effort: Pulmonary effort is normal. Breath sounds: Normal breath sounds. Musculoskeletal: Cervical back: Neck supple. Right lower leg: No edema. Left lower leg: No edema. Skin: General: Skin is warm and dry. Capillary Refill: Capillary refill takes 2 to 3 seconds. Neurological: General: No focal deficit present. Mental Status: He is alert. Psychiatric: Mood and Affect: Mood normal. Behavior: Behavior normal. Thought Content: Thought content normal. Judgment: Judgment normal. ASSESSMENT AND PLAN: No follow-ups on file. Problem List Items Addressed This Visit HTN (hypertension) ([facility]) - Primary Please check blood pressure daily and record DASH diet Limit caffeine Take medication as directed Contact office if chest pain, pressure, dizziness, shortness of breath, swelling legs Recommend slow position changes Current: amlodipine and losartan Took today's meds just prior to coming in for an appt Will have pt stop in office next week for bp check, no adjustments at this time Relevant Medications amLODIPine (Norvasc) 10 MG tablet losartan (Cozaar) 100 MG tablet Obstructive sleep apnea, adult Had both sleep studies, has machine, wearing since of Still getting used to it. You have a diagnosis of obstructive sleep apnea. It is recommended that you wear your PAP device any time while in bed sleeping. Not using the PAP device can increase your risk of elevated/uncontrolled high blood pressure, atrial fibrillation, heart attack, stroke, or sudden . Compliant: yes Hours: at least 4 hours Overall feels better, but still getting adjusted to sleep etc Elevated serum protein level Will provide order for him to get done Non fasting Morbid (severe) obesity due to excess calories ([facility]) Discussed with patient their BMI (actual, verses recommended). We have also discussed lifestyle modifications: attempts to perform physical activity as chronic conditions allow, also to monitor dietary intake: increasing protein/fruits/veggies and lowering carb intake (unless contraindicated). Limit sodas, juices, and sugary drinks. 20 pound weight gain since 11/10. Parents now living with him, more snacks and different eating schedule Recommend try to stick 2000 calories, Body mass index (BMI) 45.0-49.9, adult ([facility]) Associated Problem(s): HTN (hypertension) (CMS/FORMERLY [facility]) Please check blood pressure daily and record DASH diet Limit caffeine Take medication as directed Contact office if chest pain, pressure, dizziness, shortness of breath, swelling legs Recommend slow position changes Current: amlodipine and losartan Took today's meds just prior to coming in for an appt Will have pt stop in office next week for bp check, no adjustments at this time documented in this encounter [facility] 07-03-2024 Instructions Gricelda Pettit NP - 07/03/2024 2:40 PM EST Diet: 2000 calories daily. Discussed with patient their BMI (actual, verses recommended). We have also discussed lifestyle modifications: attempts to perform physical activity as chronic conditions allow, also to monitor dietary intake: increasing protein/fruits/veggies and lowering carb intake (unless contraindicated). Limit sodas, juices, and sugary drinks. Blood pressure stop by week of 07/09/24 for blood pressure check, just not on Tuesday. documented in this encounter [facility] 05-03-2024 History of Presen t illness Narrative Associated Problem(s): Obstructive sleep apnea, adult Has sleep study at age 13, prescribed machine, did not wear it. Does not know if snores, but has been told snores, does not think gasps at night, but can be restless at times. Awakens unrested, can doze off at times if sitting in chair Order sleep study Images from the original note were not included. Estiven Woods is a 24 y.o. male presents with chief complaint of No chief complaint on file. HPI: Hypertension This is a chronic problem. The current episode started more than 1 year ago. The problem has been gradually improving since onset. The problem is controlled. Pertinent negatives include no anxiety, blurred vision, chest pain, neck pain, orthopnea, peripheral edema or shortness of breath. There are no associated agents to hypertension. Risk factors for coronary artery disease include obesity and male gender. Past treatments include calcium channel blockers and angiotensin blockers. The current treatment provides moderate improvement. There are no compliance problems. There is no history of kidney disease, CAD/IN or heart failure. SUBJECTIVE: MEDICATIONS: Current Outpatient Medications Medication Instructions amLODIPine (NORVASC) 10 mg, Oral, Daily losartan (COZAAR) 100 mg, Oral, Daily, Take 1 tablet by mouth in the morning. ALLERGIES: Allergies Allergen Reactions Bee Venom Swelling REVIEW OF SYMPTOMS: Review of Systems Constitutional: Positive for fatigue. Negative for activity change, appetite change and unexpected weight change. HENT: Negative for ear pain, nosebleeds, sneezing, trouble swallowing and voice change. Eyes: Negative for blurred vision, pain, discharge and visual disturbance. Respiratory: Negative for apnea, chest tightness, shortness of breath and wheezing. Cardiovascular: Negative for chest pain, orthopnea and leg swelling. Gastrointestinal: Negative for abdominal distention, blood in stool, constipation and diarrhea. Genitourinary: Negative for decreased urine volume, difficulty urinating, dysuria and hematuria. Musculoskeletal: Negative for neck pain. Skin: Negative for color change. Neurological: Negative for dizziness, tremors and seizures. Psychiatric/Behavioral: Negative for agitation, decreased concentration, hallucinations, self-injury and suicidal ideas. The patient is not nervous/anxious. Hematological: Negative for adenopathy. Does not bruise/bleed easily. Endocrine: Negative for cold intolerance, heat intolerance, polydipsia and polyuria. Allergic/Immunologic: Negative for environmental allergies and food allergies. PAST MEDICAL HISTORY Past Medical History: Diagnosis Date HTN (hypertension) ([facility]) 07/06/2023 Hypertensive retinopathy, bilateral last eye exam 02/23/23 Major depression, chronic ([facility]) Morbid obesity with body mass index of 40.0-49.9 ([facility]) Obstructive sleep apnea, adult SVT (supraventricular tachycardia) ([facility]) Past Surgical History: Procedure Laterality Date TONSILLECTOMY as a child family history includes Diabetes in his mother, paternal grandfather, and paternal grandmother; Hypertension in his father and mother; Leukemia in his father and another family member. OBJECTIVE: Visit Vitals BP 128/86 (BP Location: Left arm, Patient Position: Sitting, BP Cuff Size: Large adult long) Pulse 78 Temp 98.5 F (Temporal) Resp 20 Ht 6' 1 Wt 357 lb 3.2 oz SpO2 97% BMI 47.13 kg/m Smoking Status Never BSA 2.89 m Physical Exam Vitals and nursing note reviewed. Constitutional: Appearance: Normal appearance. He is obese. HENT: Head: Normocephalic. Right Ear: External ear normal. Left Ear: External ear normal. Nose: Nose normal. Mouth/Throat: Mouth: Mucous membranes are moist. Pharynx: Oropharynx is clear. Eyes: Extraocular Movements: Extraocular movements intact. Conjunctiva/sclera: Conjunctivae normal. Neck: Vascular: No carotid bruit. Cardiovascular: Rate and Rhythm: Normal rate and regular rhythm. Pulses: Normal pulses. Heart sounds: Normal heart sounds. Pulmonary: Effort: Pulmonary effort is normal. Breath sounds: Normal breath sounds. Abdominal: General: Bowel sounds are normal. Palpations: Abdomen is soft. Musculoskeletal: Cervical back: Neck supple. Right lower leg: No edema. Left lower leg: No edema. Skin: General: Skin is warm and dry. Capillary Refill: Capillary refill takes 2 to 3 seconds. Neurological: General: No focal deficit present. Mental Status: He is alert. Psychiatric: Mood and Affect: Mood normal. Behavior: Behavior normal. Thought Content: Thought content normal. Judgment: Judgment normal. ASSESSMENT AND PLAN: No follow-ups on file. Problem List Items Addressed This Visit HTN (hypertension) (CMS/HCC) - Primary Please check blood pressure daily and record DASH diet Limit caffeine Take medication as directed Contact office if chest pain, pressure, dizziness, shortness of breath, swelling legs Recommend slow position changes Obstructive sleep apnea, adult Has sleep study at age 13, prescribed machine, did not wear it. Does not know if snores, but has been told snores, does not think gasps at night, but can be restless at times. Awakens unrested, can doze off at times if sitting in chair Order sleep study BMI 45.0-49.9, adult (CMS/HCC) Hypertensive retinopathy, bilateral Continue with Opthamology Elevated serum protein level Recheck labs in another few weeks Mixed hyperlipidemia (CMS/HCC) Labs from 04/08/24: TC 213, Trigs 183, HDL 51, LDL 126 Recommend low fat dietary options, cut back on carb consumption and increase physical activity No statin at this time Associated Problem(s): Mixed hyperlipidemia (CMS/HCC) Labs from 04/08/24: TC 213, Trigs 183, HDL 51, LDL 126 Recommend low fat dietary options, cut back on carb consumption and increase physical activity No statin at this time Associated Problem(s): Hypertensive retinopathy, bilateral Continue with Opthamology Associated Problem(s): Elevated serum protein level Recheck labs in another few weeks Associated Problem(s): HTN (hypertension) (CMS/HCC) Please check blood pressure daily and record DASH diet Limit caffeine Take medication as directed Contact office if chest pain, pressure, dizziness, shortness of breath, swelling legs Recommend slow position changes documented in this encounter [facility] 05-03-2024 Instructions Gricelda Pettit NP - 05/03/2024 3:00 PM EST Recheck protein level (blood test) after Will send order to [facility] for sleep study Call eye doctor to get in for an appt documented in this encounter [facility] 07-21-2023 History of Presen t illness Narrative Associated Problem(s): HTN (hypertension) (CMS/HCC) Missed a dose of meds yesterday, and took them this morning Feels good No changes Fu in 3 months Images from the original note were not included. Estiven Woods is a 23 y.o. male presents with chief complaint of No chief complaint on file. HPI: Hypertension This is a chronic problem. The current episode started more than 1 year ago. The problem has been gradually improving since onset. The problem is controlled. Pertinent negatives include no anxiety, blurred vision, chest pain, peripheral edema, PND or shortness of breath. There are no associated agents to hypertension. Risk factors for coronary artery disease include obesity and male gender. Past treatments include MORENITA inhibitors and calcium channel blockers. The current treatment provides significant improvement. There are no compliance problems. SUBJECTIVE: MEDICATIONS: Current Outpatient Medications Medication Instructions amLODIPine (Norvasc) 10 MG tablet 1 tablet, Oral, Daily losartan (Cozaar) 100 MG tablet 1 tablet, Oral, Daily ALLERGIES: Allergies Allergen Reactions Bee Venom Swelling REVIEW OF SYMPTOMS: Review of Systems Constitutional: Negative for activity change, appetite change and unexpected weight change. HENT: Negative for ear pain, nosebleeds, sneezing, trouble swallowing and voice change. Eyes: Negative for blurred vision, pain, discharge and visual disturbance. Respiratory: Negative for apnea, chest tightness, shortness of breath and wheezing. Cardiovascular: Negative for chest pain, leg swelling and PND. Gastrointestinal: Negative for abdominal distention, blood in stool, constipation and diarrhea. Genitourinary: Negative for decreased urine volume, difficulty urinating, dysuria and hematuria. Skin: Negative for color change. Neurological: Negative for dizziness, tremors and seizures. Psychiatric/Behavioral: Negative for agitation, decreased concentration, hallucinations, self-injury and suicidal ideas. The patient is not nervous/anxious. Hematological: Negative for adenopathy. Does not bruise/bleed easily. Endocrine: Negative for cold intolerance, heat intolerance, polydipsia and polyuria. Allergic/Immunologic: Negative for environmental allergies and food allergies. PAST MEDICAL HISTORY Past Medical History: Diagnosis Date HTN (hypertension) (CMS/HCC) 07/06/2023 Hypertensive retinopathy, bilateral last eye exam 02/23/23 Major depression, chronic (CMS/[facility]) Morbid obesity with body mass index of 40.0-49.9 (CMS/HCC) Obstructive sleep apnea, adult SVT (supraventricular tachycardia) Past Surgical History: Procedure Laterality Date TONSILLECTOMY as a child family history includes Diabetes in his mother, paternal grandfather, and paternal grandmother; Hypertension in his father and mother; Leukemia in his father and another family member. OBJECTIVE: Visit Vitals BP (!) 132/98 (BP Location: Left arm, Patient Position: Sitting, BP Cuff Size: Large adult long) Pulse 86 Temp 97.8 F (Temporal) Resp 18 Ht 6' 1 Wt 346 lb 6.4 oz SpO2 98% BMI 45.70 kg/m Smoking Status Never BSA 2.84 m Physical Exam Vitals reviewed. Constitutional: Appearance: Normal appearance. HENT: Head: Normocephalic. Right Ear: External ear normal. Left Ear: External ear normal. Nose: Nose normal. Mouth/Throat: Mouth: Mucous membranes are moist. Pharynx: Oropharynx is clear. Eyes: Extraocular Movements: Extraocular movements intact. Conjunctiva/sclera: Conjunctivae normal. Neck: Vascular: No carotid bruit. Cardiovascular: Rate and Rhythm: Normal rate and regular rhythm. Pulses: Normal pulses. Heart sounds: Normal heart sounds. Pulmonary: Effort: Pulmonary effort is normal. Breath sounds: Normal breath sounds. Abdominal: General: Bowel sounds are normal. Palpations: Abdomen is soft. Musculoskeletal: Cervical back: Neck supple. Skin: General: Skin is warm and dry. Capillary Refill: Capillary refill takes 2 to 3 seconds. Neurological: General: No focal deficit present. Mental Status: He is alert. Psychiatric: Mood and Affect: Mood normal. Behavior: Behavior normal. Thought Content: Thought content normal. Judgment: Judgment normal. ASSESSMENT AND PLAN: No follow-ups on file. Problem List Items Addressed This Visit HTN (hypertension) (CMS/HCC) - Primary Missed a dose of meds yesterday, and took them this morning Feels good No changes Fu in 3 months BMI 45.0-49.9, adult (CMS/HCC) documented in this encounter [facility] Evaluation note Diagnosis Primary hypertension (CMS/HCC)- Primary Unspecified essential hypertension BMI 45.0-49.9, adult (CMS/HCC) [facility]* Diagnosis Primary hypertension ([facility]/HCC)- Primary Unspecified essential hypertension BMI 45.0-49.9, adult ([facility]/HCC) Primary hypertension ([facility]/HCC)- Primary Unspecified essential hypertension BMI 45.0-49.9, adult ([facility]) SVT (supraventricular tachycardia) ([facility]) Other specified cardiac dysrhythmias Hypertensive retinopathy, bilateral Primary hypertension ([facility]/HCC)- Primary Unspecified essential hypertension BMI 45.0-49.9, adult ([facility]) Elevated serum protein level- Primary [facility] Diagnosis Primary hypertension ([facility]/HCC)- Primary Unspecified essential hypertension BMI 45.0-49.9, adult ([facility]/HCC) Primary hypertension ([facility]/HCC)- Primary Unspecified essential hypertension BMI 45.0-49.9, adult ([facility]) SVT (supraventricular tachycardia) ([facility]) Other specified cardiac dysrhythmias Hypertensive retinopathy, bilateral Primary hypertension ([facility]/HCC)- Primary Unspecified essential hypertension BMI 45.0-49.9, adult ([facility]/HCC) Primary hypertension ([facility]/HCC)- Primary Unspecified essential hypertension Obstructive sleep apnea, adult BMI 45.0-49.9, adult ([facility]) Elevated serum protein level Hypertensive retinopathy, bilateral Mixed hyperlipidemia ([facility]) Mixed hyperlipidemia [facility] Diagnosis Primary hypertension ([facility]) Unspecified essential hypertension [facility] Diagnosis Primary hypertension ([facility]/HCC)- Primary Unspecified essential hypertension BMI 45.0-49.9, adult ([facility]/HCC) Primary hypertension ([facility]/HCC)- Primary Unspecified essential hypertension BMI 45.0-49.9, adult ([facility]) SVT (supraventricular tachycardia) ([facility]) Other specified cardiac dysrhythmias Hypertensive retinopathy, bilateral Primary hypertension ([facility]/HCC)- Primary Unspecified essential hypertension BMI 45.0-49.9, adult ([facility]/HCC) Primary hypertension ([facility]/HCC)- Primary Unspecified essential hypertension Obstructive sleep apnea, adult BMI 45.0-49.9, adult ([facility]) Elevated serum protein level Hypertensive retinopathy, bilateral Mixed hyperlipidemia ([facility]/HCC) Mixed hyperlipidemia Primary hypertension ([facility]/HCC)- Primary Unspecified essential hypertension Morbid (severe) obesity due to excess calories ([facility]) Body mass index (BMI) 45.0-49.9, adult ([facility]) Obstructive sleep apnea, adult Elevated serum protein level documented in this encounter [facility]* Diagnosis Primary hypertension ([facility]/HCC)- Primary Unspecified essential hypertension BMI 45.0-49.9, adult ([facility]) Primary hypertension ([facility]/HCC)- Primary Unspecified essential hypertension BMI 45.0-49.9, adult ([facility]) SVT (supraventricular tachycardia) ([facility]) Other specified cardiac dysrhythmias Hypertensive retinopathy, bilateral Primary hypertension ([facility]/HCC)- Primary Unspecified essential hypertension BMI 45.0-49.9, adult ([facility]) Primary hypertension ([facility])- Primary Unspecified essential hypertension Obstructive sleep apnea, adult BMI 45.0-49.9, adult ([facility]) Elevated serum protein level Hypertensive retinopathy, bilateral Mixed hyperlipidemia ([facility]) Mixed hyperlipidemia Primary hypertension ([facility])- Primary Unspecified essential hypertension Morbid (severe) obesity due to excess calories ([facility]) Body mass index (BMI) 45.0-49.9, adult ([facility]) Obstructive sleep apnea, adult Elevated serum protein level Primary hypertension ([facility])- Primary Unspecified essential hypertension Obstructive sleep apnea, adult Morbid (severe) obesity due to excess calories ([facility]) documented in this encounter [facility] Summary Purpose Family History No Family History Records FoundNo Family History Records Found Advance Directives No Advanced Directives Records FoundNo Advanced Directives Records Found Additional Source Comments (unrecognized sect ion and content) No Status Records FoundNo Status Records Found INFORMATION SOURCE (unrecogn ized section and content) DATE CREATED AUTHOR 01/10/2020 [facility] DATE CREATED AUTHOR AUTHOR'S ORGANIZ ATION 11/21/2024 [facility] [employer] Care Teams (unrecognized sec tion and content) Software Applications Specialist Relationship Specialty Start Date End Date Reji Garcia MD [address] [place] [address] PCP - External PCP Internal Medicine 02/14/23 Gricelda Pettit NP [address] [place] [phone] Nurse Practitioner Family Medicine 04/20/23 [employer] Specialist Relationship Specialty Start Date End Date Reji Garcia MD [address] [place] [phone] PCP - External PCP Internal Medicine 02/14/23 Gricelda Pettit NP [address] [place] [phone] Nurse Practitioner Family Medicine 04/20/23 Software Applications Specialist Relationship Specialty Start Date End Date Reji Garcia MD PCP - External PCP Internal Medicine 02/14/23 Isael Andres MD [address] [place] [phone] PCP - General Family Medicine 10/19/23 Gricelda Pettit NP [address] [place] [phone] Nurse Practitioner Family Medicine 04/20/23 Gricelda Pettit NP [address] [place] [phone] Nurse Practitioner Family Medicine 10/19/23 Software Applications Specialist Relationship Specialty Start Date End Date Reji Garcia MD PCP - External PCP Internal Medicine 02/14/23 Isael Andres MD [address] [place] [phone] PCP - General Family Medicine 10/19/23 Gricelda Pettit NP [address] [place] [phone] Nurse Practitioner Family Medicine 04/20/23 Gricelda Pettit NP [address] [place] [phone] Nurse Practitioner Family Medicine 10/19/23 Software Applications Specialist Relationship Specialty Start Date End Date Reji Garcia MD PCP - External PCP Internal Medicine 02/14/23 Isael Andres MD [address] [place] [phone] PCP - General Family Medicine 10/19/23 Gricelda Pettit NP [address] [place] [phone] Nurse Practitioner Family Medicine 04/20/23 Gricelda Pettit NP [address] [place] [phone] Nurse Practitioner Family Medicine 10/19/23 Software Applications Specialist Relationship Specialty Start Date End Date Reji Garcia MD PCP - External PCP Internal Medicine 02/14/23 Isael Andres MD [address] [place] [phone] PCP - General Family Medicine 10/19/23 Gricelda Pettit NP [address] [place] [phone] Nurse Practitioner Family Medicine 04/20/23 Gricelda Pettit NP [address] [place] [phone] Nurse Practitioner Family Medicine 10/19/23 Software Applications Specialist Relationship Specialty Start Date End Date Reji Garcia MD PCP - External PCP Internal Medicine 02/14/23 Isael Andres MD [address] [place] [phone] PCP - General Family Medicine 10/19/23 Gricelda Pettit NP [address] [place] [phone] Nurse Practitioner Family Medicine 04/20/23 Gricelda Pettit NP [address] [place] [phone] Nurse Practitioner Family Medicine 10/19/23 Software Applications Specialist Relationship Specialty Start Date End Date Reji Garcia MD PCP - External PCP Internal Medicine 02/14/23 Isael Andres MD [address] [place] [phone] PCP - General Family Medicine 10/19/23 Gricelda Pettit NP [address] [place] [phone] Nurse Practitioner Family Medicine 04/20/23 Gricelda Pettit NP [address] [place] [phone] Nurse Practitioner Family Medicine 10/19/23 Software Applications Specialist Relationship Specialty Start Date End Date Reji Garcia MD PCP - External PCP Internal Medicine 02/14/23 Isael Andres MD [address] [place] [phone] PCP - General Family Medicine 10/19/23 Gricelda Pettit NP [address] [place] [phone] Nurse Practitioner Family Medicine 04/20/23 Gricelda Pettit NP [address] [place] [phone] Nurse Practitioner Family Medicine 10/19/23 Software Applications Specialist Relationship Specialty Start Date End Date Reji Garcia DO PCP - External PCP Internal Medicine 02/14/23 Isael Andres MD [address] [place] [phone] PCP - General Family Medicine 10/19/23 Gricelda Pettit NP [address] [place] [phone] Nurse Practitioner Family Medicine 04/20/23 Gricelda Pettit NP [address] [place] [phone] Nurse Practitioner Family Medicine 10/19/23 Software Applications Specialist Relationship Specialty Start Date End Date Reji Garcia DO PCP - External PCP Internal Medicine 02/14/23 Isael Andres MD [address] [place] [phone] PCP - General Family Medicine 10/19/23 Gricelda Pettit NP [address] [place] [address] Nurse Practitioner Family Medicine 04/20/23 Gricelda Pettit NP [address] [place] [phone] Nurse Practitioner Family Medicine 10/19/23 Reason for Visit (unrecogniz ed section and content) Reason Comments Med Refill Reason Comments Hypertension FOR RECORDS PERTAINING TO PATIENTS WHO ARE OR HAVE BEEN ENROLLED IN A CHEMICAL DEPENDENCY/SUBSTANCEABUSE PROGRAM, SOME INFORMATION MAY BE OMITTED. This clinical summary was aggregated from multiple sources. Caution should be exercised in using it in the provision of clinical care. This summary normalizes information from multiple sources, and as a consequence, information in this document may materially change the coding, format and clinical context of patient data. In addition, data may be omitted in some cases. CLINICAL DECISIONS SHOULD BE BASED ON THE PRIMARY CLINICAL RECORDS. [employer] provides no warranty or guarantee of the accuracy or completeness of information in this document.
--- NOTE | 2025-01-30 07:25 | XR_ITS ---
[facility] [place] [id number] Patient Name: EMERSON MARSH MRN: [id number] date: 2000 Sex: M Assigned Patient Location: LAB Current Patient Location: LAB Accession/Order Number: [id number] Exam Date: 01/30/2025 11:40 Report Date: 01/30/2025 11:41 At the request of: SHELLEY FELICIANO MD Procedure: XR knee RT 4V Right knee, 3 views CLINICAL HISTORY: Right Knee Contusion COMPARISON: None FINDINGS: Anterior knee soft tissue swelling. Mild tricompartmental joint space narrowing. Subtle lucency involving the superior aspect patella noted could represent a nondisplaced fracture. XR/XR knee RT 4V IMPRESSION: Lucency involving the superior aspect of the patella may represent a nondisplaced fracture. Correlate with point tenderness. Impression dictated by: Gen Tamez M.D. 01/30/2025 11:41 AM Dictation Location: [place] [id number] Electronically authenticated by: [id number] Y Date: 01/30/2025 11:41
== END 2025-01-30 06:57 | disposition home or self-care (01) ==
LOC: LAB 06:59
PROVIDERS: PCP Nurse Practitioner; Visit Provider Preventive Medicine Preventive Medicine/Occupational Environmental Medicine
DX: S80.01XA Contusion of right knee, initial encounter (principal)
CPT/HCPCS: 73564

== ENCOUNTER 2025-02-04 06:47 | Outpatient (OUT) | payer OTHER, SELFPAY ==
--- OUTSIDE RECORDS SUMMARY | 2025-02-04 06:50 | XMS_ITS | CCD ---
Author Organization [facility] Care Team Providers Care Lieutenant Fire Fighter Name Role Phone MARKER, GENESIS Admitting Unavailable MARKER, GENESIS Attending Unavailable REQUEST, NONE LISTED Primary Care Unavailable MARKER, GENESIS Consulting Unavailable Escobar, Vinaya Consulting Unavailable Jose FROST, Reji Martinez Unavailable Wilver FISHER TERRAPIN, Gricelda Unavailable Reji Garcia MD Unavailable Wilver FISHER TERRAPIN, Gricelda Unavailable Isael Andres MD Primary Care Provider Wilver FISHER TERRAPIN, Gricelda Unavailable WILVER GRICELDA Attending Unavailable WILVER, GRICELDA Attending Unavailable GRICELDA PETTIT Attending Unavailable GRICELDA PETTIT Attending Unavailable Reji Garcia DO Unavailable [phone] Allergies Allergy Classification Reported Allergen(s) Allergy Type Date of Onset Reaction(s) Facility (14 sources) Honey bee venom Propensity to adverse reactions 4 Swelling [facility] Medications Current Medications Medication Drug Class(es) Dates Sig (Normalized) Sig (Original) amLODIPine 10 mg oral tablet (20 sources) Dihydropyridine Calcium Channel Abdoul Start: 02-02-2024 End: 02-18-2025 take 1 tablet by mouth once daily amLODIPine (Norvasc) 10 MG tablet Indications: Primary hypertension Take 1 tablet (10 mg) by mouth Daily 90 tablet 1 11/20/2024 02/18/2025 Active Start: 04-06-2023 End: 10-19-2023 take 1 tablet [...] (Cozaar) 100 MG tablet Indications: Primary hypertension Take 1 tablet (100 mg) by mouth Daily Take 1 tablet by mouth in the morning. 90 tablet 1 11/20/2024 02/18/2025 Active Start: 06-05-2023 End: 10-19-2023 take 1 tablet by mouth in the morning losartan (Cozaar) 100 MG tablet Indications: Primary hypertension (CMS/HCC) Take 1 tablet (100 mg) by mouth in the morning. 30 tablet 1 07/07/2023 07/21/2023 Discontinued Problems Active Problems Problem Classification Problem Date Documented Date Episodic/Chronic Cardiac dysrhythmias (15 sources) Supraventricular tachycardia; Translations: [SVT (supraventricular tachycardia)] Onset: 07-21-2023 07-21-2023 Chronic Cardiac dysrhythmias (4 sources) Tachycardia, unspecified; Translations: [Palpitations] Onset: 12-19-2019 Episodic Disorders of lipid metabolism (12 sources) Mixed hyperlipidemia; Translations: [Mixed hyperlipidemia] Onset: 05-03-2024 05-03-2024 Chronic Essential hypertension (20 sources) Essential (primary) hypertension; Translations: [Hypertensive disorder] Onset: 12-21-2019 07-06-2023 Chronic Fever of unknown origin (1 source) Fever, unspecified; Translations: [FEVER UNSPECIFIED] Onset: 12-21-2019 Episodic Mood disorders (15 sources) Major depressive disorder; Translations: [Major depressive [...] Chronic Other nutritional; endocrine; and metabolic disorders (11 sources) Obesity caused by energy imbalance; Translations: [Morbid (severe) obesity due to excess calories] Onset: 07-03-2024 07-03-2024 Chronic Residual codes; unclassified (20 sources) Obstructive sleep apnea of adult; Translations: [Obstructive sleep apnea (adult) (pediatric)] Onset: 07-21-2023 07-21-2023 Chronic Retinal detachments; defects; vascular occlusion; and retinopathy (17 sources) Hypertensive retinopathy; Translations: [Hypertensive retinopathy, bilateral] Onset: 07-21-2023 07-21-2023 Chronic Past or Other Problems Problem Classification Problem Date Documented Da te Episodic/Chronic Other hematologic conditions (16 sources) Increased serum protein level; Translations: [Abnormality of plasma protein, unspecified] Onset: 04-18-2024 04-18-2024 Episodic Results Test Name Value Interpretation Reference Range Facility XR Knee - right [address] [place] [address] XRay Report Signed Patient: EMERSON MARSH MR#: [id number] : 2000 Acct:[id number] Age/Sex: 24 / M ADM Date: 01/30/25 Loc: LAB Attending Dr: Kyler Gee M.D. Ordering Physician: Kyler Gee M.D. Date of Service: 01/30/25 Procedure(s): XR knee RT 4V Accession Number(s): [id number] cc: Gricelda Pettit FISHER TERRAPIN; Kyler Gee M.D. [address] [address] Patient Name: EMERSON MARSH MRN: [id number] date: 2000 Sex: M Assigned Patient Location: LAB Current Patient Location: LAB Accession/Order Number: [id number] Exam Date: 01/30/2025 11:40 Report Date: 01/30/2025 11:41 At the request of: KYLER GEE MD Procedure: XR knee RT 4V Right knee, 3 views CLINICAL HISTORY: Right Knee Contusion COMPARISON: None FINDINGS: Anterior knee soft tissue swelling. Mild tricompartmental joint space narrowing. Subtle lucency involving the superior aspect patella noted could represent a nondisplaced fracture. XR/XR knee RT 4V IMPRESSION: Lucency involving the superior aspect of the patella may represent a nondisplaced fracture. Correlate with point tenderness. Impression dictated by: Gen Tamez M.D. 01/30/2025 11:41 AM Dictation Location: [place] [address] Electronically authenticated by: [id number] Y Date: 01/30/2025 11:41 Dictated By: Gen Tamez M.D. Signed By: 01/30/25 1144 DD/ 1141 TD/TT: Vulnerability Researcher: [facility] Radiology Radiologsatya prescott MD - 01/30/2025 [place] [address] XRay Report Signed Patient: EMERSON MARSH MR#: [id number] : 2000 Acct:[id number] Age/Sex: 24 / M ADM Date: 01/30/25 Loc: LAB Attending Dr: Kyler Gee M.D. Ordering Physician: Kyler Gee M.D. Date of Service: 01/30/25 Procedure(s): XR knee RT 4V Accession Number(s): [id number] cc: Gricelda Pettit FISHER TERRAPIN; Klyer Gee M.D. [address] [place] [address] Patient Name: EMERSON MARSH MRN: [facility]:[id number] date: 2000 Sex: M Assigned Patient Location: LAB Current Patient Location: LAB Accession/Order Number: [id number] Exam Date: 01/30/2025 11:40 Report Date: 01/30/2025 11:41 At the request of: KYLER GEE MD Procedure: XR knee RT 4V Right knee, 3 views CLINICAL HISTORY: Right Knee Contusion COMPARISON: None FINDINGS: Anterior knee soft tissue swelling. Mild tricompartmental joint space narrowing. Subtle lucency involving the superior aspect patella noted could represent a nondisplaced fracture. XR/XR knee RT 4V IMPRESSION: Lucency involving the superior aspect of the patella may represent a nondisplaced fracture. Correlate with point tenderness. Impression dictated by: Gen Tamez M.D. 01/30/2025 11:41 AM Dictation Location: [place] [address] Electronically authenticated by: [id number] Y Date: 01/30/2025 11:41 Dictated By: Gen Tamez M.D. Signed By: 01/30/25 1144 DD/ 1141 TD/TT: Vulnerability Researcher: [facility] Radiology Study observation (narrative) [facility] XR Knee - right 4 ViewsOrder ed By: Radiologist Radiology on 01-30-2025 [facility] e Work Phone: ALL CBC WITH AUTO DIFFon BASOPHILS ABSOLUTE AUTO 0.1 [facility] Basophils/100 WBC (Bld) 1 % 0.2 - 2.0 % [facility] Eosinophils/100 WBC (Bld) 3.7 % 0.9 - 7.0 % [facility] Erythrocyte distribution width (RBC) [Ratio] 12.9 % 11.0 - 15.0 % [facility] Hematocrit (Bld) [Volume fraction] 42.7 % 42.0 - 54.0 % [facility] Hem[facility] (Bld) [Mass/Vol] 14.5 g/dL 14.0 - 18.0 g/dL [facility] IMMATURE GRANULOCYTES ABS AUTO 0.02 [facility] Immature granulocytes/100 WBC (Bld) 0.3 % 0.0 - 0.5 % [facility] LYMPHOCYTES ABSOLUTE AUTO 2.5 [facility] Lymphocytes/100 WBC (Bld) 31.2 % 20.5 - 60.0 % [facility] MCH (RBC) [Entitic mass] 28.8 pg 25.9 - 34.0 pg [facility] MCHC (RBC) [Mass/Vol] 34 g/dL 29.9 - 35.2 g/dL [facility] MCV (RBC) [Entitic vol] 84.9 fL 80.0 - 94.0 fL [facility] MONOCYTES ABSOLUTE AUTO 0.5 [facility] Monocytes/100 WBC (Bld) 6.1 % 1.7 - 12.0 % [facility] NEUTROPHILS ABSOLUTE AUTO 4.6 [facility] Neutrophils/100 WBC (Bld) 57.7 % 43.0 - 75.0 % [facility] Platelet mean volume (Bld) [Entitic vol] 10 fL 9.5 - 13.5 fL [facility] EO # 0.3 [facility] PLT 328 [facility] RBC 5.03 [facility] WBC 7.9 [facility] CARDIAC EDER ADMITon 020 CK [Catalytic activity/Vol] 120 U/L Normal 55-170 [facility] Comment on above: Performed By: #### C MARY ELLEN REYES #### [facility] [address] [place], [place] [id number] Aiden Nieves CK.MB [Mass/Vol] 0.76 ng/mL Normal <=2.37 [facility] Comment on above: Performed By: #### C MARY ELLEN REYES #### [facility] [address] [place], [place] [phone] Aiden Nieves INR Coag (Bld) [Relative time] SEE BELOW Normal [facility] Comment on above: Result Comment: <0.0 34 ng/ml NEGATIVE 0.034-0.119 INDETERMINATE 0.120 AMI CUT OFF Performed By: #### C MARY ELLEN REYES #### [facility] [address] [place], [place] [id number] Aiden Lizbeth PENNY 40.0 ng/mL Normal <=121.0 [facility] Comment on above: Performed By: #### C MARY ELLEN REYES #### [facility] [address] [place], [place] [phone] Aiden Lizbeth TROP <0.012 Normal <=0.034 [facility] Comment on above: Performed By: #### C MARY ELLEN REYES #### [facility] [address] [place], [place] [phone] Aiden Lizbeth CBC AUTO DIFFon 12-19-2019 Basophils (Bld) [#/Vol] 0.1 103/ul Normal 0.0-0.1 [facility] Comment on above: Performed By: #### C BC #### [facility] [address] [place], [place] [phone] Aiden Lizbeth Basophils/100 WBC (Bld) 0.8 % Normal 0.2-2.0 [facility] Comment on above: Performed By: #### C BC #### [facility] [address] [place], [place] [phone] Aiden Lizbeth Eosinophils (Bld) [#/Vol] 0.2 103/ul Normal 0.0-0.7 [facility] Comment on above: Performed By: #### C BC #### [facility] [address] [place], [place] [phone] Aiden Lizbeth Eosinophils/100 WBC (Bld) 3.3 % Normal 0.9-7.0 [facility] Comment on above: Performed By: #### C BC #### [facility] [address] [place] [address] Aiden Lizbeth Erythrocyte distribution width (RBC) [Ratio] 12.7 % Normal 11.0-15.0 [facility] Comment on above: Performed By: #### C BC #### [facility] [address] [place], [place] [address] Aiden Lizbeth Hematocrit (Bld) [Volume fraction] 41.6 % Critically low 42.0-54.0 [facility] Comment on above: Performed By: #### C BC #### [facility] [address] [place], [place] [address] Aiden Lizbeth Hemoglobin (Bld) [Mass/Vol] 13.8 g/dL Critically low 14.0-18.0 [facility] Comment on above: Performed By: #### C BC #### [facility] [address] [place], [place] [address] Aiden Lizbeth IG # 0.01 10e3/ul Normal 0.00-0.03 [facility] Comment on above: Performed By: #### C BC #### [facility] [address] [place], [place] [address] Aiden Lizbeth IG % 0.1 % Normal 0.0-0.5 [facility] Comment on above: Performed By: #### C BC #### [facility] [address] [place] [id number] Aiden Lizbeth Lymphocytes (Bld) [#/Vol] 2.3 103/ul Normal 1.2-3.8 [facility] Comment on above: Performed By: #### C BC #### [facility] [address] [place] [phone] Aiden Lizbeth Lymphocytes/100 WBC (Bld) 32.4 % Normal 20.5-60.0 [facility] Comment on above: Performed By: #### C BC #### [facility] [address] [place], [place] [address] Aiden Lizbeth MANUAL DIFF REQ NO Normal [facility] Comment on above: Performed By: #### C BC #### [facility] [address] [place], [place] [address] Aiden Lizbeth MCH (RBC) [Entitic mass] 28.7 pg Normal 25.9-34.0 [facility] Comment on above: Performed By: #### C BC #### [facility] [address] [place], [place] [address] Aiden Lizbeth MCHC (RBC) [Mass/Vol] 33.2 g/dL Normal 29.9-35.2 [facility] Comment on above: Performed By: #### C BC #### [facility] [address] [place], [place] [address] Aiden Lizbeth MCV (RBC) [Entitic vol] 86.5 fL Normal 80.0-94.0 [facility] Comment on above: Performed By: #### C BC #### [facility] [address] [place] [phone] Aiden Lizbeth Monocytes (Bld) [#/Vol] 0.5 103/ul Normal 0.3-0.8 [facility] Comment on above: Performed By: #### C BC #### [facility] [address] [place] [phone] Aiden Lizbeth Monocytes/100 WBC (Bld) 6.6 % Normal 1.7-12.0 [facility] Comment on above: Performed By: #### C BC #### [facility] [address] [place], [place] [address] Aidenaudrey Nieves Neutrophils (Bld) [#/Vol] 4.1 103/ul Normal 1.4-6.5 [facility] Comment on above: Performed By: #### C BC #### [facility] [address] [place], [place] [address] Aiden Nieves Neutrophils/100 WBC (Bld) 56.8 % Normal 43.0-75.0 [facility] Comment on above: Performed By: #### C BC #### [facility] [address] [place], [place] [address] Aiden Nieves Platelet mean volume (Bld) [Entitic vol] 10.5 fL Normal 9.5-13.5 [facility] Comment on above: Performed By: #### C BC #### [facility] [address] [place] [address] Aiden Nieves Platelets (Bld) [#/Vol] 308 103/ul Normal 150-450 [facility] Comment on above: Performed By: #### C BC #### [facility] [address] [place] [address] Aiden Nieves RBC (Bld) [#/Vol] 4.81 106/ul Normal 4.70-6.10 [facility] Comment on above: Performed By: #### C BC #### [facility] [address] [place] [address] Aiden Nieves WBC (Bld) [#/Vol] 7.2 103/ul Normal 4.0-11.0 [facility] Comment on above: Performed By: #### C BC #### [facility] [address] [place] [address] Aiden Nieves D-DIMERon 12-19-2019 D-DIMER COMMENTS SEE BELOW Normal [facility] Comment on above: Result Comment: Incr eases [...] hospitalization. Performed By: #### D DIM #### [facility] [address] [place], [place] [address] Aidenaudrey Nieves Fibrin D-dimer FEU IA (Bld) [Mass/Vol] 0.19 ug/mL Normal 0.19-0.50 [facility] Comment on above: Performed By: #### D DIM #### [facility] [address] [place], [place] [address] Aiden Nieves PROF 14(COMP METB)on 020 Albumin [Mass/Vol] 4.0 g/dL Normal 3.5-5.0 [facility] Comment on above: Performed By: #### C MARY ELLEN REYES #### [facility] [address] [place], [place] [address] Aidenaudrey Nieves Albumin/Globulin [Mass ratio] 1.0 {ratio} Normal [facility] Comment on above: Performed By: #### C MARY ELLEN REYES #### [facility] [address] [place], [place] [address] Aiden Lizbeth ALP [Catalytic activity/Vol] 56 U/L Normal 38-126 [facility] Comment on above: Performed By: #### C MARY ELLEN REYES #### [facility] [address] [place], [place] [address] Aiden Nieves ALT [Catalytic activity/Vol] 61 U/L Normal 21-72 [facility] Comment on above: Performed By: #### C MARY ELLEN REYES #### [facility] [address] [place], [place] [address] Aidenaudrey Nieves Anion gap [Moles/Vol] 16.3 mmol/L Normal [facility] Comment on above: Performed By: #### C MARY ELLEN REYES #### [facility] [address] [place], [place] [address] Aiden Nieves AST [Catalytic activity/Vol] 36 U/L Normal 17-59 [facility] Comment on above: Performed By: #### C AMY, CMADM #### [facility] [address] [place] [phone] Aiden Lizbeth Bilirubin Ql (U) 0.4 mg/dL Normal 0.2-1.3 [facility] Comment on above: Performed By: #### C MP, CMADM #### [facility] [address] [place] [address] Aiden Lizbeth Calcium [Mass/Vol] 9.0 mg/dL Normal 8.4-10.2 [facility] Comment on above: Performed By: #### C AMY, CMADM #### [facility] [address] [place] [address] Aiden Lizbeth Chloride [Moles/Vol] 102 mmol/L Normal 98-107 [facility] Comment on above: Performed By: #### C AMY, CMADM #### [facility] [address] [place] [address] Aiden Lizbeth CO2 [Moles/Vol] 25.3 mmol/L Normal 22.0-30.0 [facility] Comment on above: Performed By: #### C AMY, CMADM #### [facility] [address] [place] [address] Aiden Lizbeth Creatinine [Mass/Vol] 1.01 mg/dL Normal 0.66-1.25 [facility] Comment on above: Performed By: #### C AMY, CMADM #### [facility] [address] [place] [address] Aiden Lizbeth EGFR-AF BOTSWANAN >60 Normal >=60 [facility] Comment on above: Performed By: #### C AMY, CMADM #### [facility] [address] [place], [place] [address] Aiden Lizbeth EGFR-NON AF BOTSWANAN >60 Normal >=60 [facility] Comment on above: Performed By: #### C AMY, CMADM #### [facility] [address] [place] [address] Aiden Lizbeth Globulin (S) [Mass/Vol] 4.0 g/dL Normal [facility] Comment on above: Performed By: #### C MP, CMADM #### [facility] [address] [place], [place] [address] Aiden Lizbeth Glucose [Mass/Vol] 85 mg/dL Normal 74-106 [facility] Comment on above: Performed By: #### C MP, CMADM #### [facility] [address] [place], [place] [address] Aiden Lizbeth Potassium [Moles/Vol] 3.6 mmol/L Normal 3.4-5.0 [facility] Comment on above: Performed By: #### C MP, CMADM #### [facility] [address] [place], [place] [address] Aiden Lizbeth Protein [Mass/Vol] 8.0 g/dL Normal 6.1-8.2 [facility] Comment on above: Performed By: #### C AMY, CMADM #### [facility] [address] [place], [place] [address] Aiden Lizbeth Sodium [Moles/Vol] 140 mmol/L Normal 137-145 [facility] Comment on above: Performed By: #### C MP, CMADM #### [facility] [address] [place], [place] [address] Aiden Lizbeth Urea nitrogen [Mass/Vol] 18.0 mg/dL Normal 9.0-20.0 [facility] Comment on above: Performed By: #### C MP, CMADM #### [facility] [address] [place], [place] [address] Aiden Lizbeth Urea nitrogen/Creatinin e [Mass ratio] 17.8 mg/mg Normal [facility] Comment on above: Performed By: #### C AMY, CMADM #### [facility] [address] [place], [place] [address] Aiden Lizbeth XR CHEST 1 Von 12-19-2019 XR CHEST 1 V EXAM: XR CHEST 1 V HISTORY: CHEST PAIN, UNSPECIFIED COMPARISON: None. FINDINGS: Single AP upright view is submitted.. The cardiomediastinal silhouette, lungs, pulmonary vasculature, and pleural spaces are normal. No acute osseous lesion is present. IMPRESSION: No acute cardiopulmonary abnormality. Electronically authenticated by: PILO AGUILLON Date: 2019-12-19 05:01 Normal [facility] Vital Signs Date Time Vital Sign Value Performing Clinician Fer baer 11-20-2024 15:56-0400 Body mass index (BMI) [Ratio] 45.57 kg/m2 Gricelda Wilver FISHER TERRAPIN Work Phone: [facility] 11-20-2024 15:56-0400 Body temperature 98.29 [degF] Gricelda Wilver FISHER TERRAPIN Work Phone: [facility] 11-20-2024 15:56-0400 Body weight 156.67 kg Gricelda Wilver FISHER TERRAPIN Work Phone: [facility] 11-20-2024 15:56-0400 Diastolic blood pressure 88 mm[Hg] Gricelda Wilver FISHER TERRAPIN Work Phone: [facility] 11-20-2024 15:56-0400 Heart rate 76 /min Gricelda Wilver FISHER TERRAPIN Work Phone: [facility] 11-20-2024 15:56-0400 Respiratory rate 20 /min Griceldamanoj Crossgerz FISHER TERRAPIN Work Phone: [facility] 11-20-2024 15:56-0400 SaO2% (BldA) [Mass fraction] 97 % Gricelda Wilver FISHER TERRAPIN Work Phone: [facility] 11-20-2024 15:56-0400 Systolic blood pressure 122 mm[Hg] Gricelda Wilver FISHER TERRAPIN Work Phone: [facility] 07-03-2024 14:51-0500 Body height 185.4 cm Gricelda Keatonz FISHER TERRAPIN Work Phone: [facility] 07-03-2024 14:51-0500 Body mass index (BMI) [Ratio] 48.55 kg/m2 Gricelda Keatonz FISHER TERRAPIN Work Phone: [facility] 07-03-2024 14:51-0500 Body temperature 98.49 [degF] Gricelda Wilver FISHER TERRAPIN Work Phone: [facility] 07-03-2024 14:51-0500 Body weight 166.92 kg Gricelda Aichholz FISHER TERRAPIN Work Phone: [facility] 07-03-2024 14:51-0500 Diastolic blood pressure 98 mm[Hg] Gricelda Aichholz FISHER TERRAPIN Work Phone: [facility] 07-03-2024 14:51-0500 Heart rate 98 /min Gricelda Aichholz FISHER TERRAPIN Work Phone: [facility] 07-03-2024 14:51-0500 Respiratory rate 20 /min Gricelda Aichholz FISHER TERRAPIN Work Phone: [facility] 07-03-2024 14:51-0500 SaO2% (BldA) [Mass fraction] 97 % Gricelda Aichholz FISHER TERRAPIN Work Phone: [facility] 07-03-2024 14:51-0500 Systolic blood pressure 142 mm[Hg] Gricelda Aichholz FISHER TERRAPIN Work Phone: [facility] 05-03-2024 15:15-0500 Body height 185.4 cm Gricelda Aichholz FISHER TERRAPIN Work Phone: [facility] 05-03-2024 15:15-0500 Body mass index (BMI) [Ratio] 47.13 kg/m2 Gricelda Aichholz FISHER TERRAPIN Work Phone: [facility] 05-03-2024 15:15-0500 Body temperature 98.49 [degF] Gricelda Aichholz FISHER TERRAPIN Work Phone: [facility] 05-03-2024 15:15-0500 Body weight 162.03 kg Gricelda Aichholz FISHER TERRAPIN Work Phone: [facility] 05-03-2024 15:15-0500 Diastolic blood pressure 86 mm[Hg] Gricelda Aichholz FISHER TERRAPIN Work Phone: [facility] 05-03-2024 15:15-0500 Heart rate 78 /min Gricelda Aichholz FISHER TERRAPIN Work Phone: [facility] 05-03-2024 15:15-0500 Respiratory rate 20 /min Gricelda Aichholz FISHER TERRAPIN Work Phone: [facility] 05-03-2024 15:15-0500 SaO2% (BldA) [Mass fraction] 97 % Gricelda Aichholz FISHER TERRAPIN Work Phone: [facility] 05-03-2024 15:15-0500 Systolic blood pressure 128 mm[Hg] Gricelda Aichholz FISHER TERRAPIN Work Phone: [facility] 07-21-2023 15:00-0500 Body height 185.4 cm Gricelda Aichholz FISHER TERRAPIN Work Phone: [facility] 07-21-2023 15:00-0500 Body mass index (BMI) [Ratio] 45.7 kg/m2 Gricelda Aichholz [employer]ER [employer]IN Work Phone: [facility] 07-21-2023 15:00-0500 Body temperature 97.81 [degF] Gricelda Aichholz [employer] Work Phone: [facility] 07-21-2023 15:00-0500 Body weight 157.13 kg Gricelda Aichholz [employer] Work Phone: [facility] 07-21-2023 15:00-0500 Diastolic blood pressure 98 mm[Hg] Gricelda Aichholz [employer] Work Phone: [facility] 07-21-2023 15:00-0500 Heart rate 86 /min Gricelda Aichholz [employer] Work Phone: [facility] 07-21-2023 15:00-0500 Respiratory rate 18 /min Gricelda Aichholz [employer] Work Phone: [facility] 07-21-2023 15:00-0500 SaO2% (BldA) [Mass fraction] 98 % Gricelda Aichholz [employer] Work Phone: [facility] 07-21-2023 15:00-0500 Systolic blood pressure 132 mm[Hg] Gricelda Aichholz [employer] Work Phone: [facility] Encounters Encounter Date Encounter Type Care Provider Facility Start: 01-30-2025 End: 01-30-2025 Clinisync Result Encounter Generic External Data Provider [facility] Unsolicited Start: 01-30-2025 End: 01-30-2025 Clinisync Result Encounter Generic External Data Provider [facility] Unsolicited Start: 11-20-2024 End: 11-20-2024 Office outpatient visit 15 minutes Gricelda Pettit [employer] Work Phone: [facility] Comment on above: Primary hypertension (CMS/HCC) (Primary Dx); Obstructive sleep apnea, adult; Morbid (severe) obesity due to excess calories (CMS/HCC) Start: 11-20-2024 End: 11-20-2024 ambulatory GRICELDA WILVER Not Available Start: 11-20-2024 End: 11-20-2024 Bamboo flowsheet Gricelda Pettit [employer] Work Phone: [facility] Start: 11-20-2024 End: 11-20-2024 Bamboo flowsheet Gricelda Pettit [employer] Work Phone: [facility] Start: 07-03-2024 End: 07-03-2024 ambulatory GRICELDA TAYHOLMaryjo Not Available Start: 07-03-2024 End: 07-03-2024 Office outpatient visit 25 minutes Gricelda Pettit [employer] Work Phone: [facility] Comment on above: Primary hypertension (CMS/HCC) (Primary Dx); Morbid (severe) obesity due to excess calories (CMS/HCC); Body mass index (BMI) 45.0-49.9, adult (CMS/HCC); Obstructive sleep apnea, adult; Elevated serum protein level Start: 07-03-2024 End: 07-03-2024 Bamboo flowsheet Gricelda Pettit [employer] Work Phone: [facility] Start: 07-03-2024 End: 07-03-2024 Bamboo flowsheet Gricelda Pettit [employer] Work Phone: [facility] Start: 05-03-2024 End: 05-03-2024 ambulatory GRICELDA AICHHOLZ Not Available Start: 05-03-2024 End: 05-03-2024 Office outpatient visit 25 minutes Gricelda Tayholz [employer] Work Phone: [facility] Comment on above: Primary hypertension (CMS/HCC) (Primary Dx); Obstructive sleep apnea, adult; BMI 45.0-49.9, adult (CMS/HCC); Elevated serum protein level; Hypertensive retinopathy, bilateral; Mixed hyperlipidemia (CMS/HCC) Start: 05-03-2024 End: 05-03-2024 Bamboo flowsheet Gricelda Aichholz [employer] Work Phone: [facility] Start: 05-03-2024 End: 05-03-2024 Bamboo flowsheet Gricelda Aichholz [employer] Work Phone: [facility] Start: 04-18-2024 End: 04-18-2024 Orders Only Gricelda Aichholz [employer] Work Phone: [facility] Comment on above: Elevated serum prote in level (Primary Dx) Start: 04-17-2024 End: 04-17-2024 Clinisync Result Encounter Gricelda Aichholz [employer] Work Phone: [facility] External Department Unsolicited Start: 04-17-2024 End: 04-17-2024 Clinisync Result Encounter Gricelda Aichholz [employer] Work Phone: [facility] External Department Unsolicited Start: 02-25-2024 End: 02-27-2024 Refill Gricelda Aichholz [employer] Work Phone: [facility] Comment on above: Primary hypertension (CMS/HCC) Start: 02-02-2024 End: 02-02-2024 ambulatory GRICELDA AICHHOLZ Not Available Start: 07-21-2023 End: 07-21-2023 Office outpatient visit 15 minutes Gricelda Aichholz [employer] Work Phone: [facility] Comment on above: Primary hypertension (CMS/HCC) (Primary Dx); BMI 45.0-49.9, adult (CMS/HCC) Start: 07-21-2023 Bamboo flowsheet Gricelda Pettit NP Work Phone: [facility] Start: 07-21-2023 Bamboo flowsheet Gricelda Pettit NP Work Phone: [facility] Start: 12-19-2019 End: 12-19-2019 Patient encounter procedure GENESIS MARKER Facility:H1 Procedures Date Procedure Procedure Detail Performing Clinician Start: 01-30-2025 Radiologic exam knee complete 4/more views Generic External Data Provider Start: 04-17-2024 ALL CBC WITH AUTO DIFF Gricelda Pettit NP Work Phone: Plan of Treatment Date Care Activity Detail Author Start: 04-23-2025 End: 04-23-2025 Patient encounter procedure 04/23/2025 3:00 PM EST [facility] [address] [place] [phone] Gricelda Pettit, ANTONIO [address] [place] [phone] [facility] Start: 11-20-2024 End: 11-20-2024 Patient encounter procedure 11/20/2024 3:40 PM EDT Office Visit [facility] [address] [place] [address] Gricelda Pettit, ANTONIO [address] [place] [phone] Obstructive sleep apnea, adult (Primary Dx); Primary hypertension (CMS/HCC); Morbid (severe) obesity due to excess calories (CMS/HCC) [facility] Comment on above: Obstructive sleep ap maco, adult (Primary Dx); Primary hypertension (CMS/HCC); Morbid (severe) obesity due to excess calories (CMS/HCC) Start: 07-03-2024 End: 07-03-2024 Patient encounter procedure 07/03/2024 2:40 PM EST Office Visit [facility] [address] [place] [address] Gricelda Pettit, ANTONIO [address] [place] [address] [facility] Start: 05-19-2024 End: 04-18-2025 Hepatic function 2000 panel - Serum or Plasma Hepatic function panel Lab Routine Elevated serum protein level Expected: 05/19/2024 (Approximate), Ex[facility]: [facility] Phone: Comment on above: Expected: 05/19/2024 (Approximate), Expires: 04/18/2025 Start: 05-03-2024 End: 05-03-2024 Patient encounter procedure 05/03/2024 3:00 PM EST Office Visit [facility] [address] [place] [address] Gricelda Pettit, ANTONIO [address] [place] [phone] [facility] Start: 10-19-2023 End: 10-19-2023 Patient encounter procedure 10/19/2023 2:20 PM EDT Office Visit [facility] [address] [place] [address] Gricelda Pettit, ANTONIO [address] [place] [address] [facility] Start: 07-21-2023 End: 07-21-2023 Patient encounter procedure 07/21/2023 3:00 PM EST Office Visit [facility] [address] [place] [address] Gricelda Pettit, ANTONIO [address] [place] [address] Arrived [facility] Comment on above: Arrived Payers Date Payer Category Payer Private Health Insurance [facility] [id number] 2022 Unknown [id number] 2022 Unknown [id number] 1998 Unknown [id number] 1998 Unknown [id number] 1998 Unknown [id number] 1998 Unknown [id number] 1998 Unknown [id number] 1959 Unknown [id number] Social History Date Type Detail Facility Start: 07-06-2023 Tobacco smoking stat [facility] Never smoked tobacco [facility] Start: 07-06-2023 End: 11-02-2023 [facility] of [facility] function [facility] Start: 07-06-2023 End: 11-02-2023 Tobacco use panel [facility] Start: 2000 Sex Assigned At Not on file [facility] Start: 07-21-2023 End: 11-20-2024 Alcohol intake Lifetime non-drinker (finding) [facility] Start: 07-21-2023 Alcohol Comment caffine:soda 20oz da erik [facility] Clinical Notes 07-21-2023 to 11-20-2024 Gricelda Pettit NP - 11/20/2024 3:40 PM Yohana Pettit, FISHER TERRAPIN - 11/20/2024 7:05 AM Yohana Pettit, ANTONIO - 11/20/2024 7:04 AM Yohana Pettit, FISHER TERRAPIN - 11/20/2024 7:04 AM EDTPatient Instructions Note Date & Type Note Facility 11-20-2024 History of Presen t illness Narrative Images from the original note were not included. Emerson Marsh is a 24 y.o. male presents with [...] includes retinopathy. There is no history of CAD/MD, heart failure or PVD. SUBJECTIVE: MEDICATIONS: Current [...] Past Medical History: Diagnosis Date HTN (hypertension) ([facility]) 07/06/2023 Hypertensive retinopathy, bilateral last eye exam 02/23/23 Major depression, chronic ([facility]) Morbid obesity with body mass index of 40.0-49.9 ([facility]) Obstructive sleep apnea, adult SVT (supraventricular tachycardia) ([facility]) Past Surgical History: Procedure Laterality Date TONSILLECTOMY [...] to sleep etc documented in this encounter [facility] 11-20-2024 Instructions Gricelda Pettit NP - 11/20/2024 3:40 PM EDT No med dose changes, continue all your hard work!!! documented in this encounter [facility] 07-03-2024 History of Presen t illness Narrative [...] from the original note were not included. Emerson Marsh is a 24 y.o. male presents with [...] Past Medical History: Diagnosis Date HTN (hypertension) ([facility]) 07/06/2023 Hypertensive retinopathy, bilateral last eye exam 02/23/23 Major depression, chronic ([facility]) Morbid obesity with body mass index of 40.0-49.9 ([facility]) Obstructive sleep apnea, adult SVT (supraventricular tachycardia) ([facility]) Past Surgical History: Procedure Laterality Date TONSILLECTOMY [...] List Items Addressed This Visit HTN (hypertension) ([facility]) - Primary Please check blood pressure daily [...] Morbid (severe) obesity due to excess calories ([facility]) Discussed with patient their BMI (actual, verses [...] calories, Body mass index (BMI) 45.0-49.9, adult ([facility]) Associated Problem(s): HTN (hypertension) ([facility]) Please check blood pressure daily and record [...] at this time documented in this encounter [facility] 07-03-2024 Instructions Gricelda Pettit NP - 07/03/2024 [...] not on Tuesday. documented in this encounter [facility] 05-03-2024 History of Presen t illness Narrative [...] from the original note were not included. Emerson Marsh is a 24 y.o. male presents with [...] There is no history of kidney disease, CAD/MD or heart failure. SUBJECTIVE: MEDICATIONS: Current Outpatient [...] Past Medical History: Diagnosis Date HTN (hypertension) ([facility]/HCC) 07/06/2023 Hypertensive retinopathy, bilateral last eye exam 02/23/23 Major depression, chronic ([facility]) Morbid obesity with body mass index of 40.0-49.9 ([facility]) Obstructive sleep apnea, adult SVT (supraventricular tachycardia) ([facility]) Past Surgical History: Procedure Laterality Date TONSILLECTOMY [...] List Items Addressed This Visit HTN (hypertension) ([facility]) - Primary Please check blood pressure daily [...] chair Order sleep study BMI 45.0-49.9, adult ([facility]/HCC) Hypertensive retinopathy, bilateral Continue with Opthamology Elevated [...] slow position changes documented in this encounter [facility] 05-03-2024 Instructions Gricelda Pettit NP - 05/03/2024 3:00 PM EST Recheck protein level (blood test) after thanksgiving Will send order to [facility] for sleep study Call eye doctor to get in for an appt documented in this encounter [facility] 07-21-2023 History of Presen t illness Narrative Associated Problem(s): HTN (hypertension) ([facility]) Missed a dose of meds yesterday, and took them this morning Feels good No changes Fu in 3 months Images from the original note were not included. Emerson Marsh is a 23 y.o. male presents with [...] Past Medical History: Diagnosis Date HTN (hypertension) ([facility]/HCC) 07/06/2023 Hypertensive retinopathy, bilateral last eye exam 02/23/23 Major depression, chronic ([facility]) Morbid obesity with body mass index of 40.0-49.9 ([facility]) Obstructive sleep apnea, adult SVT (supraventricular tachycardia) [...] List Items Addressed This Visit HTN (hypertension) ([facility]) - Primary Missed a dose of meds yesterday, and took them this morning Feels good No changes Fu in 3 months BMI 45.0-49.9, adult ([facility]) documented in this encounter [facility] Healthcare Evaluation note Diagnosis Primary hypertension (CMS/HCC)- Primary Unspecified essential hypertension BMI 45.0-49.9, adult (CMS/HCC) [facility] Diagnosis Primary hypertension (CMS/HCC)- Primary Unspecified essential hypertension BMI 45.0-49.9, adult (CMS/HCC) Primary hypertension (CMS/HCC)- Primary Unspecified essential hypertension BMI 45.0-49.9, adult (CMS/HCC) SVT (supraventricular tachycardia) (CMS/HCC) Other specified cardiac dysrhythmias Hypertensive retinopathy, bilateral Primary hypertension (CMS/HCC)- Primary Unspecified essential hypertension BMI 45.0-49.9, adult (CMS/HCC) Elevated serum protein level- Primary documented in this encounter [facility]* Diagnosis Primary hypertension (CMS/HCC)- Primary Unspecified essential hypertension BMI 45.0-49.9, adult (CMS/HCC) Primary hypertension (CMS/HCC)- Primary Unspecified essential hypertension BMI 45.0-49.9, adult (CMS/HCC) SVT (supraventricular tachycardia) ([facility]/HCC) Other specified cardiac dysrhythmias Hypertensive retinopathy, bilateral Primary hypertension (CMS/HCC)- Primary Unspecified essential hypertension BMI 45.0-49.9, adult ([facility]/HCC) Primary hypertension (CMS/HCC)- Primary Unspecified essential hypertension Obstructive sleep apnea, adult BMI 45.0-49.9, adult (CMS/HCC) Elevated serum protein level Hypertensive retinopathy, bilateral Mixed hyperlipidemia ([facility]/HCC) Mixed hyperlipidemia documented in this encounter [facility] Healthcare[facility]* Diagnosis Primary hypertension (CMS/HCC) Unspecified essential hypertension [facility] Diagnosis Primary hypertension (CMS/HCC)- Primary Unspecified essential hypertension BMI 45.0-49.9, adult (CMS/HCC) Primary hypertension (CMS/HCC)- Primary Unspecified essential hypertension BMI 45.0-49.9, adult (CMS/HCC) SVT (supraventricular tachycardia) (CMS/HCC) Other specified cardiac dysrhythmias Hypertensive retinopathy, bilateral Primary hypertension (CMS/HCC)- Primary Unspecified essential hypertension BMI 45.0-49.9, adult ([facility]/HCC) Primary hypertension (CMS/HCC)- Primary Unspecified essential hypertension Obstructive sleep apnea, adult BMI 45.0-49.9, adult ([facility]/HCC) Elevated serum protein level Hypertensive retinopathy, bilateral Mixed hyperlipidemia (CMS/HCC) Mixed hyperlipidemia Primary hypertension ([facility]/HCC)- Primary Unspecified essential hypertension Morbid (severe) obesity due to excess calories ([facility]) Body mass index (BMI) 45.0-49.9, adult ([facility]/HCC) Obstructive sleep apnea, adult Elevated serum protein level documented in this encounter [facility] Healthcare[facility]* Diagnosis Primary hypertension ([facility]/HCC)- Primary Unspecified essential hypertension BMI 45.0-49.9, adult ([facility]/HCC) Primary hypertension ([facility]/HCC)- Primary Unspecified essential hypertension BMI 45.0-49.9, adult ([facility]) SVT (supraventricular tachycardia) ([facility]) Other specified cardiac dysrhythmias Hypertensive retinopathy, bilateral Primary hypertension (CMS/HCC)- Primary Unspecified essential hypertension BMI 45.0-49.9, adult ([facility]) Primary hypertension ([facility]/HCC)- Primary Unspecified essential hypertension Obstructive sleep apnea, adult BMI 45.0-49.9, adult ([facility]) Elevated serum protein level Hypertensive retinopathy, bilateral Mixed hyperlipidemia ([facility]/HCC) Mixed hyperlipidemia Primary hypertension ([facility]/HCC)- Primary Unspecified essential hypertension Morbid (severe) obesity due to excess calories ([facility]) Body mass index (BMI) 45.0-49.9, adult ([facility]) Obstructive sleep apnea, adult Elevated serum protein level Primary hypertension ([facility]/HCC)- Primary Unspecified essential hypertension Obstructive sleep apnea, adult Morbid (severe) obesity due to excess calories ([facility]/HCC) documented in this encounter [facility] Summary Purpose Family History No Family History Records FoundNo Family History Records Found Advance Directives No Advanced Directives Records FoundNo Advanced Directives Records Found Additional Source Comments (unrecognized sect ion and content) No Status Records FoundNo Status Records Found INFORMATION SOURCE (unrecogn ized section and content) DATE CREATED AUTHOR 01/10/2020 [employer] DATE CREATED AUTHOR AUTHOR'S ORGANIZ ATION 11/21/2024 [facility] [employer] Care Teams (unrecognized sec tion and content) Lieutenant Fire Fighter Relationship Specialty Start Date End Date Reji Garcia MD [address] [place] [phone] PCP - External PCP Internal Medicine 02/14/23 Gricelda Pettit NP [address] [place] [phone] Nurse Practitioner Family Medicine 04/20/23 Lieutenant Fire Fighter Relationship Specialty Start Date End Date Reji Garcia MD [address] [place] [phone] PCP - External PCP Internal Medicine 02/14/23 Gricelda Pettit NP [address] [place] [phone] Nurse Practitioner Family Medicine 04/20/23 Lieutenant Fire Fighter Relationship Specialty Start Date End Date Reji Garcia MD PCP - External PCP Internal Medicine 02/14/23 Isael Andres MD [address] [place] [phone] PCP - General Family Medicine 10/19/23 Gricelda Pettit NP [address] [place] [address] Nurse Practitioner Family Medicine 04/20/23 Gricelda Pettit NP [address] [place] [address] Nurse Practitioner Family Medicine 10/19/23 Lieutenant Fire Fighter Relationship Specialty Start Date End Date Reji Garcia MD PCP - External PCP Internal Medicine 02/14/23 Isael Andres MD [address] [place] [phone] PCP - General Family Medicine 10/19/23 Gricelda Pettit NP [address] [place] [phone] Nurse Practitioner Family Medicine 04/20/23 Gricelda Pettit, ANTONIO [address] [place] [address] Nurse Practitioner Family Medicine 10/19/23 Lieutenant Fire Fighter Relationship Specialty Start Date End Date Reji Garcia MD PCP - External PCP Internal Medicine 02/14/23 Isael Andres MD [address] [place] [phone] PCP - General Family Medicine 10/19/23 Gricelda Pettit NP [address] [place] [address] Nurse Practitioner Family Medicine 04/20/23 Gricelda Pettit NP [address] [place] [address] Nurse Practitioner Family Medicine 10/19/23 Lieutenant Fire Fighter Relationship Specialty Start Date End Date Reji Garcia MD PCP - External PCP Internal Medicine 02/14/23 Isael Andres MD [address] [place] [address] PCP - General Family Medicine 10/19/23 Gricelda Pettit NP [address] [place] [phone] Nurse Practitioner Family Medicine 04/20/23 Gricelda Pettit NP [address] [place] [phone] Nurse Practitioner Family Medicine 10/19/23 Lieutenant Fire Fighter Relationship Specialty Start Date End Date Reji Garcia MD PCP - External PCP Internal Medicine 02/14/23 Isael Andres MD [address] [place] [address] PCP - General Family Medicine 10/19/23 Gricelda Pettit NP [address] [place] [phone] Nurse Practitioner Family Medicine 04/20/23 Gricelda Pettit NP [address] [place] [address] Nurse Practitioner Family Medicine 10/19/23 Lieutenant Fire Fighter Relationship Specialty Start Date End Date Reji Garcia MD PCP - External PCP Internal Medicine 02/14/23 Isael Andres MD [address] [place] [phone] PCP - General Family Medicine 10/19/23 Gricelda Pettit NP [address] [place] [phone] Nurse Practitioner Family Medicine 04/20/23 Gricelda Pettit NP [address] [place] [address] Nurse Practitioner Family Medicine 10/19/23 Lieutenant Fire Fighter Relationship Specialty Start Date End Date Reji Garcia MD PCP - External PCP Internal Medicine 02/14/23 Isael Andres MD [address] [place] [address] PCP - General Family Medicine 10/19/23 Gricelda Pettit NP [address] [place] [address] Nurse Practitioner Family Medicine 04/20/23 Gricelda Pettit NP [address] [place] [address] Nurse Practitioner Family Medicine 10/19/23 Lieutenant Fire Fighter Relationship Specialty Start Date End Date Reji Garcia DO PCP - External PCP Internal Medicine 02/14/23 Isael Andres MD [address] [place] [address] PCP - General Family Medicine 10/19/23 Gricelda Pettit NP [address] [place] [phone] Nurse Practitioner Family Medicine 04/20/23 Gricelda Pettit NP [address] [place] [address] Nurse Practitioner Family Medicine 10/19/23 Lieutenant Fire Fighter Relationship Specialty Start Date End Date Reji Garcia DO PCP - External PCP Internal Medicine 02/14/23 Isael Andres MD [address] [place] [address] PCP - General Family Medicine 10/19/23 Gricelda Pettit NP [address] [place] [phone] Nurse Practitioner Family Medicine 04/20/23 Gricelda Pettit NP [address] [place] [phone] Nurse Practitioner Family Medicine 10/19/23 Reason for [...] BE BASED ON THE PRIMARY CLINICAL RECORDS. [facility]. provides no warranty or guarantee of the accuracy or completeness of information in this document.
--- OUTSIDE RECORDS SUMMARY | 2025-02-04 06:50 | XMS_ITS | Clinical Summary ---
Author Organization [facility] Address [address] [place] [address] Care Team Providers Care Process Development Technician Name Role Phone Reji Garcia DO Unavailable [phone] Gricelda Pettit NP Unavailable [phone] Isael Andres MD Primary Care Provider Gricelda Pettit NP Unavailable [phone] Allergies Active Allergy Reactions Criticality Noted Date Comments Bee Venom Swelling 07/21/2023 Medications amLODIPine (Norvasc) 10 MG tabletIndications :Primary hypertension Take 1 tablet (10 mg) by mouth Daily 90 tablet 1 11/20/2024 02/19/20 25 Active losartan (Cozaar) 100 MG tabletIndications :Primary hypertension Take 1 tablet (100 mg) by mouth Daily Take 1 tablet by mouth in the morning. 90 tablet 1 11/20/2024 02/19/20 25 Active Active Problems Problem Noted Date Diagnosed Date Morbid (severe) obesity due to excess calories 0 07/03/2024 Assessment & Plan (11/20/2024 4:17 PM EDT): Discussed with patient their BMI (actual, verses recommended). We have also discussed lifestyle modifications: attempts to perform physical activity as chronic conditions allow, also to monitor dietary intake: increasing protein/fruits/veggies and lowering carb intake (unless contraindicated). Limit sodas, juices, and sugary drinks. Has lost approx 23 pounds since 07/14 Cut out milk, more water, less pop, less fast food More activity Assessment & Plan (07/03/2024 3:25 PM EST): Discussed with patient their BMI (actual, verses [...] calories, Body mass index (BMI) 45.0-49.9, adult Mixed hyperlipidemia 05/03/2024 Assessment & Plan (05/03/2024 7:20 AM EST): Labs from 04/08/24: TC 213, Trigs 183, HDL 51, LDL 126 Recommend low fat dietary options, cut back on carb consumption and increase physical activity No statin at this time Elevated serum protein level 04/18/2024 Assessment & Plan (07/03/2024 3:15 PM EST): Will provide order for him to get done Non fasting Assessment & Plan (05/03/2024 7:19 AM EST): Recheck labs in another few weeks Obstructive sleep apnea, adult 07/21/2023 Overview (05/30/2024): Sleep study 05/29/24: AHI 49, sat 84% Assessment & Plan (11/20/2024 4:15 PM EDT): Had both sleep studies, has machine, wearing [...] but still getting adjusted to sleep etc Assessment & Plan (07/03/2024 3:14 PM EST): Had both sleep studies, has machine, wearing [...] but still getting adjusted to sleep etc Assessment & Plan (05/03/2024 3:37 PM EST): Has sleep study at age 13, prescribed machine, did not wear it. Does not know if snores, but has been told snores, does not think gasps at night, but can be restless at times. Awakens unrested, can doze off at times if sitting in chair Order sleep study SVT (supraventricular tachycardia) 07/21/2023 BMI 45.0-49.9, adult 07/21/2023 Assessment & Plan (11/02/2023 3:12 PM EDT): Discussed with patient their BMI (actual, verses recommended). We have also discussed lifestyle modifications: attempts to perform physical activity as chronic conditions allow, also to monitor dietary intake: increasing protein/fruits/veggies and lowering carb intake (unless contraindicated). Limit sodas, juices, and sugary drinks. Major depression, chronic 07/21/2023 Hypertensive retinopathy, bilateral 07/21/2023 Overview (07/21/2023): last eye exam 02/23/23 Assessment & Plan (05/03/2024 7:19 AM EST): Continue with Opthamology Assessment & Plan (11/02/2023 3:13 PM EDT): Continue with Opthamology HTN (hypertension) 07/06/2023 Assessment & Plan (11/20/2024 7:04 AM EDT): Please check blood pressure daily and record DASH diet Limit caffeine Take medication as directed Contact office if chest pain, pressure, dizziness, shortness of breath, swelling legs Recommend slow position changes Current: amlodipine and losartan Took today's meds just prior to coming in for an appt Will have pt stop in office next week for bp check, no adjustments at this time Assessment & Plan (07/03/2024 3:23 PM EST): Please check blood pressure daily and record DASH diet Limit caffeine Take medication as directed Contact office if chest pain, pressure, dizziness, shortness of breath, swelling legs Recommend slow position changes Current: amlodipine and losartan Took today's meds just prior to coming in for an appt Will have pt stop in office next week for bp check, no adjustments at this time Assessment & Plan (05/03/2024 7:18 AM EST): Please check blood pressure daily and record DASH diet Limit caffeine Take medication as directed Contact office if chest pain, pressure, dizziness, shortness of breath, swelling legs Recommend slow position changes Assessment & Plan (02/02/2024 3:45 PM EDT): Check labs-non compliant with getting them done, again stressed importance Feels good No changes Fu in 3 months Assessment & Plan (11/02/2023 3:12 PM EDT): Check labs Feels good No changes Fu in 3 months Assessment & Plan (07/21/2023 3:17 PM EST): Missed a dose of meds yesterday, and took them this morning Feels good No changes Fu in 3 months Encounters Date Type Department Care Team Description 01/30/2025 Clinisync Result Encounter [facility] External Department Unsolicited Provider, Generic External Data 11/20/2024 3:40 PM EDT Office Visit [facility] [address] [place] [phone] Gricelda Pettit NP Primary hypertension (Primary Dx); Obstructive sleep apnea, adult; Morbid (severe) obesity due to excess calories ([facility]) 11/20/2024 Bamboo flowsheet [facility] [address] [place] [address] Gricelda Pettit NP from Last 3 Months Family History Medical History Relation Name Comments Hypertension Father Leukemia Father Diabetes Mother Hypertension Mother Leukemia Other maternal grpt Diabetes Paternal Grandfather Diabetes Paternal Grandmother Relation Name Status Comments Father Mother Other maternal grpt Paternal Grandfather Paternal Grandmother Social History Tobacco Use Types Packs/Day Years Used Date Smoking Tobacco: Never Tobacco Cessation:Counseling Given: Not Answered Alcohol Use Standard Drinks/Week Comments Never 0 (1 standard drink = 0.6 oz pur e alcohol) caffine:soda 20oz daily PHQ-2 Answer Date Recorded Patient Health Questionnaire-2 Score 1 11/02/2023 Sex and Gender Information Value Date Recorded Sex Assigned at Not on file Legal Sex Male 6:40 PM EDT Gender Identity Not on file Sexual Orientation Not on file Last Filed Vital Signs Vital Sign Reading Time Taken Comments Blood Pressure 122/88 11/20/2024 3:56 PM EDT Pulse 76 11/20/2024 3:56 PM EDT Temperature 36.8 C (98.3 F) 11/20/2024 3:56 PM EDT Respiratory Rate 20 11/20/2024 3:56 PM EDT Oxygen Saturation 97% 11/20/2024 3:56 PM EDT Inhaled Oxygen Concentration - - Weight 157 kg (345 lb 6.4 oz) 11/20/2024 3:56 PM EDT Height 185.4 cm (6' 1 ) 07/03/2024 2:51 PM EST Body Mass Index 45.57 07/03/2024 2:51 PM EST Plan of Treatment Upcoming Encounters Date Type Department Care Team (Late st Contact Info) Description 04/23/2025 3:00 PM EST Office Visit [facility] [address] [place] [address] Gricelda Pettit NP [address] [place] [address] Health Maintenance Due Date Last Done Comments Influenza Vaccine Discontinued Procedures Procedure Name Priority Date/Time Associated Diagnosis Comments XR KNEE 4+ VIEWS RIGHT 01/30/2025 11:41 AM EDT from Last 3 Months Results * XR knee 4+ views right (01/30/2025 11:41 AM EDT) Anatomical Region Laterality Modality Lower Extremities, Knee Right [facility] 01/30/2025 11:4 1 AM EDT Narrative 01/30/2025 11:44 [place] [address] XRay Report Signed Patient: EMERSON MARSH MR#: [id number] : 2000 Acct:[id number] Age/Sex: 24 / M ADM Date: 01/30/25 Loc: LAB Attending Dr: Kyler Gee M.D. Ordering Physician: Kyler Gee M.D. Date of Service: 01/30/25 Procedure(s): XR knee RT 4V Accession Number(s): [id number] cc: Gricelda Pettit EXPLOSIVES MIXER OPERATOR; Kyler Gee M.D. The [place] [address] Patient Name: EMERSON MARSH MRN: [id number] date: 2000 Sex: M Assigned Patient Location: LAB Current Patient Location: LAB Accession/Order Number: [id number] Exam Date: 01/30/2025 11:40 Report Date: 01/30/2025 [...] Tamez M.D. 01/30/2025 11:41 AM Dictation Location: [place] [address] Electronically authenticated by: [id number] Y Date: 01/30/2025 11:41 Dictated By: Gen Tamez M.D. Signed By: 01/30/25 1144 DD/ 114 TD/TT: Financial Cost Analyst: Procedure Note Radiology, Radiologist, - 01/30/2025 [place] [address] XRay Report Signed Patient: EMERSON MARSH MMR#: [id number] : 2000Acct:[id number] Age/Sex: 24 / MADM Date: 01/30/25 Loc: LAB Attending Dr: Kyler Gee M.D. Ordering Physician: Kyler Gee M.D. Date of Service: 01/30/25 Procedure(s): XR knee RT 4V Accession Number(s): [id number] cc: Gricelda Pettit EXPLOSIVES MIXER OPERATOR; Kyler Gee M.D. The [place] [address] Patient Name: EMERSON MARSH MRN: [id number] date: 2000 Sex: M Assigned Patient Location: LAB Current Patient Location: LAB Accession/Order Number: [id number] Exam Date: 01/30/2025 11:40 Report Date: 01/30/2025 11:41 At the request of: KYLER GEE MD Procedure: XR knee RT 4V Right knee, 3 views CLINICAL HISTORY: Right Knee Contusion COMPARISON: None FINDINGS: Anterior knee soft tissue swelling. Mild tricompartmental joint space narrowing. Subtle lucency involving the superior aspect patella notedcould represent a nondisplaced fracture. XR/XR knee RT 4V IMPRESSION: Lucency involving the superior aspect of the patella may represent a nondisplaced fracture. Correlate with point tenderness. Impression dictated by: Gen Tamez M.D. 01/30/2025 11:41 AM Dictation Location: [place] [address] Electronically authenticated by: [id number] Y Date: 1:41 Dictated By: Gen Tamez M.D. Signed By:01/30/25 1144 DD/ 1141 TD/TT: Financial Cost Analyst: Generic External Data Provider IMG XR PROCEDURES Final Result from Last [address] [place] [address] [facility] Care Teams Process Development Technician Relationship Specialty Start Date End Date Reji Garcia DO PCP - External PCP Internal Medicine 02/14/23 Isael Andres MD [address] [place] [address] PCP - General Family Medicine 10/19/23 Gricelda Pettit NP [address] [place] [address] Nurse Practitioner Family Medicine 04/20/23 Gricelda Pettit NP [address] [place] [address] Nurse Practitioner Family Medicine 10/19/23
--- OUTSIDE RECORDS SUMMARY | 2025-02-04 06:50 | XMS_ITS | Encounter Summary ---
Author Organization [facility] Address [address] [place] [address] Care Team Providers Care Narcotics Agent Name Role Phone Reji Garcia DO Unavailable Gricelda Pettit NP Unavailable [phone] Isael Andres MD Primary Care Provider [phone] Gricelda Pettit NP Unavailable [phone] Encounter Details Date Type Department Care Team (Late st Contact Info) Description 07/20/2023 Abstract [facility] [address] [place] [address] Gricelda Pettit, CONSTRUCTION DIRECTOR [address] [place] [address] Social History Tobacco Use Types Packs/Day Years Used Date Smoking Tobacco: Never PHQ-2 Answer Date Recorded Patient Health Questionnaire-2 Score 0 07/21/2023 Sex and Gender Information Value Date Recorded Sex Assigned at Not on file Legal Sex Male 6:40 PM EDT Gender Identity Not on file Sexual Orientation Not on file documented as of this encounter Functional Status * Over the past 2 weeks, how often have you been bothered by any of the following problems? Question Answer Date of Assessment Author Little interest or pleasure in doing things Not at all 07/21/2023 3:06 PM JARROD ROCHA Feeling down, depressed, or hopeless Not at all 07/21/2023 3:06 PM JARROD ROCHA Patient Health Questionnaire -2 Score 0 07/21/2023 3:06 PM EST JARROD SIU documented as of this encounter Plan of Treatment Upcoming Encounters Date Type Department Care Team (Late st Contact Info) Description 04/23/2025 3:00 PM EST Office Visit [facility] [address] [place] [address] Gricelda Pettit, ANTONIO [address] [place] [address] documented as of this encounter Visit Diagnoses Not on filedocumented in this encounter Care Teams Narcotics Agent Relationship Specialty Start Date End Date Reji Garcia DO PCP - External PCP Internal Medicine 02/14/23 Isael Andres MD [address] [place] [address] PCP - General Family Medicine 10/19/23 Gricelda Pettit NP [address] [place] [address] Nurse Practitioner Family Medicine 04/20/23 Gricelda Pettit NP [address] [place] [address] Nurse Practitioner Family Medicine 10/19/23 documented as of this encounter
--- OUTSIDE RECORDS SUMMARY | 2025-02-04 06:50 | XMS_ITS | Clinical Summary ---
Author Organization [facility] Address [address] [place] [address], [address] [place] [address] Care Team Providers Care Chef & Owner Name Role Phone Unavailable Primary Care Provider Unavailabl e Social History Tobacco Use Types Packs/Day Years Used Date Smoking Tobacco: Never Assessed Sex and Gender Information Value Date Recorded Sex Assigned at Not on file Legal Sex Male 1:52 PM EST Gender Identity Not on file Sexual Orientation Not on file Plan of Treatment Not on file
--- OUTSIDE RECORDS SUMMARY | 2025-02-04 06:50 | XMS_ITS | Encounter Summary ---
Author Organization [facility] Address [address] [place] [address] Care Team Providers Care Integrated Pest Management Technician Name Role Phone Reji Garcia DO Unavailable [phone] Gricelda Pettit NP Unavailable [phone] Isael Andres MD Primary Care Provider [phone] Gricelda Pettit NP Unavailable [phone] Encounter Details Date Type Department Care Team (Late st Contact Info) Description 01/30/2025 Clinisync Result Encounter [facility] External Department Unsolicited Provider, Generic External Data Social History Tobacco Use Types Packs/Day Years Used Date Smoking Tobacco: Never Alcohol Use Standard Drinks/Week Comments Never 0 (1 standard drink = 0.6 oz pur e alcohol) caffine:soda 20oz daily PHQ-2 Answer Date Recorded Patient Health Questionnaire-2 Score 1 11/02/2023 Sex and Gender Information Value Date Recorded Sex Assigned at Not on file Legal Sex Male 6:40 PM EDT Gender Identity Not on file Sexual Orientation Not on file documented as of this encounter Plan of Treatment Upcoming Encounters Date Type Department Care Team (Late st Contact Info) Description 04/23/2025 3:00 PM EST Office Visit [facility] [address] [place] [address] Gricelda Pettit NP [address] [place] [address] documented as of this encounter Procedures Procedure Name Priority Date/Time Associated Diagnosis Comments XR KNEE 4+ VIEWS RIGHT 01/30/2025 11:41 AM EDT documented in this encounter Results * XR knee 4+ views right (01/30/2025 11:41 AM EDT) Anatomical Region Laterality Modality Lower Extremities, Knee Right [facility] 01/30/2025 11:4 1 AM EDT Narrative 01/30/2025 11:44 [place] [address] XRay Report Signed Patient: EMERSON MARSH MR#: [id number] : 2000 Acct:[id number] Age/Sex: 24 / M ADM Date: 01/30/25 Loc: LAB Attending Dr: Kyler Gee M.D. Ordering Physician: Kyler Gee M.D. Date of Service: 01/30/25 Procedure(s): XR knee RT 4V Accession Number(s): [id number] cc: Gricelda Pettit STOCK LETTERER; Kyler Gee M.D. The [place] [address] Patient Name: EMERSON MARSH MRN: [id number] date: 2000 Sex: M Assigned Patient Location: LAB Current Patient Location: LAB Accession/Order Number: [id number] Exam Date: 01/30/2025 11:40 Report Date: 01/30/2025 [...] Tamez M.D. 01/30/2025 11:41 AM Dictation Location: [place] [address] Electronically authenticated by: [id number] Y Date: 01/30/2025 11:41 Dictated By: Gen Tamez M.D. Signed By: 01/30/25 1144 DD/ 1141 TD/TT: Manager Marketing: Procedure Note Radiology, Radiologist, - 01/30/2025 [place] [address] XRay Report Signed Patient: EMERSON MARSH MMR#: [id number] : 2000Acct:[id number] Age/Sex: 24 / MADM Date: 01/30/25 Loc: LAB Attending Dr: Kyler Gee M.D. Ordering Physician: Kyler Gee M.D. Date of Service: 01/30/25 Procedure(s): XR knee RT 4V Accession Number(s): [id number] cc: Gricelda Pettit STOCK LETTERER; Kyler Gee M.D. The [place] [id number] Patient Name: EMERSON MARSH MRN: [id number] date: 2000 Sex: M Assigned Patient Location: LAB Current Patient Location: LAB Accession/Order Number: [id number] Exam Date: 01/30/2025 11:40 Report Date: 01/30/2025 [...] Tamez M.D. 01/30/2025 11:41 AM Dictation Location: [place] [address] Electronically authenticated by: [id number] Y Date: 1:41 Dictated By: Gen Tamez M.D. Signed By:01/30/25 1144 DD/ 1141 TD/TT: Manager Marketing: us Generic External Data Provider IMG XR PROCEDURES Final Result documented in this encounter Visit Diagnoses Not on filedocumented in this encounter Care Teams Integrated Pest Management Technician Relationship Specialty Start Date End Date Reji Garcia DO PCP - External PCP Internal Medicine 02/14/23 Isael Andres MD [address] [place] [address] PCP - General Family Medicine 10/19/23 Gricelda Pettit NP [address] [place] [address] Nurse Practitioner Family Medicine 04/20/23 Gricelda Pettit NP [address] [place] [address] Nurse Practitioner Family Medicine 10/19/23 documented as of this encounter
--- OUTSIDE RECORDS SUMMARY | 2025-02-04 06:50 | XMS_ITS | Encounter Summary ---
Author Organization [facility] Address [address] [place] [address] Care Team Providers Care Thread Cutter Name Role Phone Reji Garcia Unavailable [phone] Gricelda Pettit NP Unavailable [phone] Isael Andres MD Primary Care Provider Gricelda Pettit NP Unavailable [phone] Encounter Details Date Type Department Care Team (Late st Contact Info) Description 05/30/2024 Orders Only [facility] [address] [place] [address] Gricelda Pettit NP [address] [place] [address] Social History Tobacco Use Types Packs/Day Years [...] 04/23/2025 3:00 PM EST Office Visit [facility] [address] [place] [address] Gricelda Pettit NP [address] [place] [address] documented as of this encounter Visit Diagnoses Not on filedocumented in this encounter Care Teams Thread Cutter Relationship Specialty Start Date End Date Reji GarciaDO PCP - External PCP Internal Medicine 02/14/23 Isael Andres MD [address] [place] [address] PCP - General Family Medicine 10/19/23 Gricelda Pettit NP [address] [place] [address] Nurse Practitioner Family Medicine 04/20/23 Gricelda Pettit NP [address] [place] [address] Nurse Practitioner Family Medicine 10/19/23 documented as of this encounter
--- NOTE | 2025-02-04 06:59 | MR_ITS ---
[address] [address] Patient Name: EMERSON MARSH MRN: [id number] date: 2000 Sex: M Assigned Patient Location: MRI Current Patient Location: MRI Accession/Order Number: [id number] Exam Date: 02/04/2025 08:44 Report Date: 02/04/2025 08:59 At the request of: RONY ROMAN NP Procedure: MR knee RT wo con MR knee RT wo con 02/04/2025 8:03 AM SIGNS AND SYMPTOMS: subtle lucency of superior right patella on x-ray, right, right knee pain PROTOCOL: Multiplanar multisequence MR images of the right knee without contrast COMPARISON: 01/30/2025 FINDINGS: Fluid: No joint effusion. Medial compartment: Medial meniscus: There is a prominent meniscal body posteriorly consistent with a discoid meniscus. The posterior aspect of the body of the meniscus measures 1.9 cm in medial to lateral dimension. No evidence of meniscal tear. Medial collateral ligament: Intact. Medial femoral condyle cartilage: Preserved. Medial tibial plateau cartilage: Preserved. Lateral compartment: Lateral meniscus: Intact. Lateral collateral ligament: Intact. Lateral femoral condyle cartilage: Preserved. Lateral tibial plateau cartilage: Preserved. Posterolateral corner: Popliteus tendon: Intact. Popliteofibular ligament: Intact. Proximal tibiofibular joint: Preserved. Anterior compartment: Alignment: There is mild lateral subluxation of the patella in respect to the trochlea. The distance between the tibial tuberosity and trochlear groove measures 2.4 cm. This is suspicious for patellar instability. Quadriceps tendon: Intact. Patellar tendon: Intact. Retinaculum: Medial intact. Lateral intact. Patellar cartilage: There is partial thickness chondromalacia.. Trochlea: There is partial thickness chondromalacia. . Plica: None. Hoffa fat pad: Normal. Intercondylar compartment: Anterior cruciate ligament: Intact. Posterior cruciate ligament: Intact. Bones (other than subarticular marrow): Normal. Muscles: Normal. Vessels: Normal. Nerves: Normal. Soft tissues: There is mild nonspecific soft tissue swelling in the subcutaneous soft tissues overlying the distal patellar tendon and anterior tibial tuberosity. 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 The posterior aspect of the body of the meniscus measures 1.9 cm in medial to lateral dimension. No evidence of meniscal tear. There is mild lateral subluxation of the patella in respect to the trochlea. The distance between the tibial tuberosity and trochlear groove measures 2.4 cm. This is suspicious for patellar instability. There is mild nonspecific soft tissue swelling in the subcutaneous soft tissues overlying the distal patellar tendon and anterior tibial tuberosity. Impression dictated by: Ryan Hardin M.D. 02/04/2025 8:59 AM Dictation Location: [place] [address] Electronically authenticated by: [id number] Y Date: 02/04/2025 08:59
== END 2025-02-04 06:48 | disposition home or self-care (01) ==
PROVIDERS: PCP Nurse Practitioner; Visit Provider Nurse Practitioner Family
DX: M25.561 Pain in right knee (principal); S83.011A Lateral subluxation of right patella, initial encounter
CPT/HCPCS: 73721